=== PATIENT | female | born 1955 | race Caucasian/White ===

== ENCOUNTER → 2016-06-21 | Outpatient (CLI) | payer OTHER ==
[2016-06-21 18:34] LABS: BASO % 0.6 % (0.0-1.0); EOS # 0.3 K/mm3 (0.0-0.50); EOS % 3.8 % (0.0-3.0); LARGE UNSTAINED CELL # 0.1 K/mm3 (0.0-0.4); LARGE UNSTAINED CELL % 1.8 % (0.0-4.0); LYMPH # 2.4 K/mm3 (1.5-4.5); LYMPH % 31.3 % (24.0-44.0); MEAN CORPUSCULAR HEMOGLOBIN 31.6 pg (27.0-33.0); MEAN CORPUSCULAR HGB CONC 33.2 g/dl (32.0-36.5); MEAN CORPUSCULAR VOLUME 95.1 fl (80.0-96.0); MONO # 0.4 K/mm3 (0.0-0.8); MONO % 4.9 % (0.0-5.0); NEUTROPHILS # 4.1 K/mm3 (1.8-7.7); NEUTROPHILS % 57.6 % (36.0-66.0); PLATELET COUNT, AUTOMATED 223 k/mm3 (150-450); RED CELL DISTRIBUTION WIDTH 11.7 % (11.5-14.5); WHITE BLOOD COUNT 7.1 K/mm3 (4.0-10.0)
[2016-06-21 18:46] LABS: ALBUMIN 4.1 GM/DL (3.2-5.2); ALBUMIN/GLOBULIN RATIO 1.14 (1.00-1.93); ALKALINE PHOSPHATASE 77 U/L (45-117); ALT/SGPT 35 U/L (12-78); ANION GAP 8 MEQ/L (8-16); AST/SGOT 24 U/L (15-37); BILIRUBIN,TOTAL 0.5 MG/DL (0.2-1.0); BLOOD UREA NITROGEN 15 MG/DL (7-18); CALCIUM LEVEL 9.5 MG/DL (8.8-10.2); CARBON DIOXIDE LEVEL 29 MEQ/L (21-32); CHLORIDE LEVEL 108 MEQ/L (98-107); CHOLESTEROL LEVEL 217 MG/DL (<200); CREATININE FOR GFR 0.96 MG/DL (0.55-1.02); FREE T4 1.11 NG/DL (0.76-1.46); GLOMERULAR FILTRATION RATE > 60.0 (>45); GLUCOSE, FASTING 77 MG/DL (80-110); MAGNESIUM LEVEL 2.1 MG/DL (1.8-2.4); PERCENT SATURATION 34.6 % (13.2-37.4); POTASSIUM SERUM 4.5 MEQ/L (3.5-5.1); SODIUM LEVEL 145 MEQ/L (136-145); TOTAL IRON BINDING CAPACITY 361 UG/DL (250-450); TOTAL PROTEIN 7.7 GM/DL (6.4-8.2); TRIGLYCERIDES LEVEL 132 MG/DL (<150)
[2016-06-21 20:03] LABS: ERYTHROCYTE SEDIMENTATION RATE 34 mm/hr (0-30)
[2016-06-23 10:23] LABS: VITAMIN B12 LEVEL 1050 PG/ML
[2016-06-23 10:24] LABS: FOLATE > 24.0 NG/ML
== END ==
LOC: M WUC 10:31
PROVIDERS: ATTEND Nurse Practitioner Family
DX: E55.9 Vitamin D deficiency, unspecified (principal); R53.83 Other fatigue

== ENCOUNTER → 2016-06-24 | Outpatient (CLI) | payer OTHER ==
[2016-06-24 18:12] LABS: MEAN CORPUSCULAR HGB CONC 32.7 g/dl (32.0-36.5); MEAN CORPUSCULAR VOLUME 94.7 fl (80.0-96.0); WHITE BLOOD COUNT 13.6 K/mm3 (4.0-10.0)
[2016-06-24 18:13] LABS: RED CELL DISTRIBUTION WIDTH 11.8 % (11.5-14.5)
[2016-06-24 18:29] LABS: BANDS 1 % (< 11)
[2016-06-24 18:44] LABS: ERYTHROCYTE SEDIMENTATION RATE 30 mm/hr (0-30)
== END ==
LOC: M WUC 13:23
PROVIDERS: ATTEND Physician Assistant
DX: J02.9 Acute pharyngitis, unspecified (principal)

== ENCOUNTER → 2016-06-26 | Outpatient (CLI) | payer BC, OTHER ==
--- NOTE | 2016-06-26 17:18 | REP ---
CT NECK WITHOUT CONTRAST: HISTORY: Acute lymphadenitis. Increased soft tissue density present in the left carotid space and left prevertebral soft tissue. This represents a combination of lymphadenopathy and/or phlegmon. There is enlargement of the left sternocleidomastoid and platysma muscles. Stranding is present in the surrounding subcutaneous tissues from the level of the nasopharynx inferior to the level of the larynx. Increased density is present in the retropharyngeal space and left parapharyngeal spaces. These findings represent edema. There is minimal thickening of the left lateral wall of the truong- and hypopharynx. There is minimal mass effect on the truong- and hypopharynx. The nasopharynx, larynx and subglottic trachea are normal in appearance. The salivary and thyroid glands are normal. Small lymph nodes less than 1 cm in size are present in the internal jugular chains, posterior triangles, submandibular and submental areas. Atherosclerotic calcification is present at the carotid bifurcations. Degenerative change is present in the cervical spine. The lung apices are clear. The visualized sinuses are clear. IMPRESSION: The above findings are consistent with a phlegmon with associated surrounding edema in the left carotid , prevertebral spaces and left posterior triangle. Signed by Stefan Rizvi MD 06/27/2016 08:28 A
== END ==
LOC: M RAD 15:58
PROVIDERS: ATTEND Nurse Practitioner Family
DX: L04.0 Acute lymphadenitis of face, head and neck (principal)

== ENCOUNTER 2016-07-01 08:58 | Emergency (ER) | payer BC, OTHER ==
[2016-07-01] MEDS ORDERED: KETOROLAC 30 MG/ML VIAL (J1885) As Ordered ONE (09:35)
[2016-07-01 10:17] LABS: ANION GAP 7 MEQ/L (8-16); BLOOD UREA NITROGEN 19 MG/DL (7-18); CALCIUM LEVEL 9.8 MG/DL (8.8-10.2); CARBON DIOXIDE LEVEL 30 MEQ/L (21-32); CHLORIDE LEVEL 103 MEQ/L (98-107); CREATININE FOR GFR 0.84 MG/DL (0.55-1.02); GLOMERULAR FILTRATION RATE > 60.0 (>45); GLUCOSE, FASTING 81 MG/DL (80-110); POTASSIUM SERUM 4.4 MEQ/L (3.5-5.1); SODIUM LEVEL 140 MEQ/L (136-145)
[2016-07-01 10:21] LABS: BASO % 0.4 % (0.0-1.0); MEAN CORPUSCULAR HEMOGLOBIN 31.2 pg (27.0-33.0); MEAN CORPUSCULAR HGB CONC 33.8 g/dl (32.0-36.5); MEAN CORPUSCULAR VOLUME 92.2 fl (80.0-96.0); MONO % 5.1 % (0.0-5.0); NEUTROPHILS % 60.1 % (36.0-66.0); PLATELET COUNT, AUTOMATED 330 k/mm3 (150-450); RED CELL DISTRIBUTION WIDTH 11.3 % (11.5-14.5); WHITE BLOOD COUNT 7.2 K/mm3 (4.0-10.0)
[2016-07-01 10:22] LABS: DIFF SLIDE NUMBER 159; EOS # 0.2 K/mm3 (0.0-0.50); LARGE UNSTAINED CELL # 0.2 K/mm3 (0.0-0.4); LARGE UNSTAINED CELL % 2.4 % (0.0-4.0); LYMPH # 2.1 K/mm3 (1.5-4.5); MONO # 0.4 K/mm3 (0.0-0.8); NEUTROPHILS # 4.3 K/mm3 (1.8-7.7)
[2016-07-01] MEDS ORDERED: ISOVUE-370 76% 100ML VIAL (Q9967) As Ordered ONE (10:29)
[2016-07-01 10:41] LABS: ERYTHROCYTE SEDIMENTATION RATE 86 mm/hr (0-30)
--- NOTE | 2016-07-01 11:12 | REP ---
CT NECK WITH CONTRAST: HISTORY: Abscess. CONTRAST: Isovue 370, 75 mL. COMPARISON: 06/26/2016. The naso-, truong-, and hypopharynx, larynx and subglottic trachea are normal in appearance. The salivary and thyroid glands are normal. A 1.7 cm abscess is present in the left posterior triangle at the level of the oropharynx. There is enlargement of the left sternocleidomastoid, left platysma and left posterior paraspinal musculature. Stranding is present in the surrounding subcutaneous tissue. This is consistent with edema. Small lymph nodes less than 1 cm in size are present in the internal jugular chains, posterior triangles, submandibular, submental and supraclavicular areas. Atherosclerotic calcification is present at the right carotid bifurcation. Degenerative change is present in the cervical spine. The lung apices are clear. The visualized sinuses are clear. IMPRESSION: There is a 1.7 cm abscess in the left posterior triangle at the level of the oropharynx. There is edema in the adjacent musculature and overlying subcutaneous tissue. There is no mass effect on the oropharynx. Signed by Stefan Rizvi MD 07/01/2016 11:14 A
--- NOTE | 2016-07-01 11:35 | EDDOCDS ---
Physician Documentation [facility] Name: Trice Jones Age: 60 yrs Sex: Female : 1955 Arrival Date: 07/01/2016 Time: 08:58 Bed I5 / M5 Private MD: Disposition: 07/01/16 11:24 Discharged to Home/Self Care. Impression: Cutaneous abscess of neck - 1.7CM ABSCESS LEFT POSTERIOR TRIANGLE OF NECK. - Condition is Stable. - Discharge Instructions: Abscess. - Prescriptions for Prednisone 20 mg Oral Tablet - take 2 tablets by ORAL route once daily for 4 days TAKE WITH FOOD, EARLIER IN THE DAY; 8 tablet. - Medication Reconciliation, Local Pharmacy Hours form. - Follow up: Emergency Department; When: As needed; Reason: Worsening of conditions. Follow up: Dionte Cameron; When: Call to arrange an appointment; Reason: Wound/Symptom Recheck, Recheck today's complaints, Continuance of care, To establish care. Follow up: Jose Dailey MD; When: Call to arrange an appointment; Reason: Wound/Symptom Recheck, Recheck today's complaints, Continuance of care, To establish care. - Problem is new. - Symptoms are unchanged. - Notes: CONTINUE TAKING THE ANTIBIOTIC YOU ARE ON NOW, TAKE DIRECTED UNTIL IT IS GONE. TAKE THE PREDNISONE PRESCRIBED UNTIL IT IS GONE WELL. FOLLOW UP ON THURSDAY WITH YOUR PROVIDER. RETURN TO THE ER WITH ANY WORSENING SYMPTOMS. Historical: - Allergies: No known drug Allergies; - Home Meds: 1. Zyrtec 10 mg Oral tab 1 tab once daily 2. multivitamin Oral cap 1 tablet daily 3. CoQ-10 oral oral daily 4. krill oil oral oral daily 5. vitamin D3 5000 units daily 6. calcium 600 mg daily 7. Cleocin 300 mg Oral cap 1 cap every 6 hours - PMHx: Seasonal Allergies; - PSHx: Tonsillectomy; Hysterectomy; - Social history: Smoking status: Patient states former smoker of tobacco. No barriers to communication noted, The patient speaks fluent Turkmen. - Family history: Not pertinent. - : The pt / caregiver states he / she is not on anticoagulants. Home medication list is obtained from the patient. - Exposure Risk Screening:: None identified. Vital Signs: 07/01 09:00 BP 114 / 84; Pulse 83; Resp 16; Temp 97.4(O); Pulse Ox 100% on R/A; Weight 58.06 kg / lr2 128 lbs (R); Height 5 ft. 4 in. (162.56 cm) (R); Pain 5/10; 11:33 BP 115 / 68; Pulse 88; Resp 18; Temp 97.8; Pulse Ox 95% ; Pain 5/10; hs1 09:00 Body Mass Index 21.97 (58.06 kg, 162.56 cm) lr2 MDM: 09:27 IV Saline Lock ordered. dt4 09:27 ketorolac 30 mg IVP once ordered. dt4 09:28 CBC with Diff Ordered. EDMS 09:28 Basic Metabolic Profile Ordered. EDMS 09:28 Sed Rate Ordered. EDMS 09:28 CRP Ordered. EDMS 09:28 CT Neck With Contrast Ordered. EDMS 09:29 ED course: PT STATES SEEN INITIALLY AT URGENT CARE FOR LEFT-SIDED NECK SWELLING/PAIN dt4 LAST WEEK. HAD CT SCAN PERFORMED AND DX'D WITH ABSCESS AND PLACED ON AUGMENTIN. PT STATES AREA WAS WORSENING, RETURNED TO THE URGENT CARE AND HAD AUGMENTIN CHANGED TO CLEOCIN. STATES HAD FOLLOW UP APPOINTMENT TODAY AT URGENT CARE AND WAS ADVISED TO COME TO THE ER TO HAVE THIS AREA DRAINED BY A SURGEON. STATES THE PROVIDER AT URGENT CARE ATTEMPTED TO CONTACT A SURGICAL SERVICE AND WAS UNABLE TO SPEAK WITH SOMEONE. PT STATES SHE HAS MORE ROM IN HER NECK TODAY THAT SHE HAS SINCE THIS BEGAN, BELIEVES THE SWELLING HAS IMPROVED SOME SINCE STARTING THE CLEOCIN. . 10:00 [facility] Payment Agreement was scanned into [email or web address] and attached to record. jp5 10:00 Financial registration complete. jp5 Administered Medications: 09:47 Drug: ketorolac 30 mg [ketorolac 30 mg/mL (1 mL) injection solution (1 mL)] Route: IVP; hs1 Site: right antecubital; Signatures: Dispatcher [employer] Cheyenne Delcid RN RN kcs Sherrill, Hannah, RN RN hs1 Molly Alan PA-C PAKati dt4 Tavon Jade jp5 The chart was reviewed and I authenticate all verbal orders and agree with the evaluation and treatment provided.Attachments: 10:00 [facility] Payment Agreement jp5 MTDD
--- NOTE | 2016-07-01 11:35 | EDDOCDS ---
Nurse's Notes [facility] Name: Trice Jones Age: 60 yrs Sex: Female : 1955 Arrival Date: 07/01/2016 Time: 08:58 Bed I5 / M5 Private MD: Diagnosis: Cutaneous abscess of neck-1.7CM ABSCESS LEFT POSTERIOR TRIANGLE OF NECK Presentation: 07/01 09:03 Presenting complaint: Patient states: she was at Urgent Care and sent here to have an kcs abscess drained on the left side of her neck - calls were out for surgeons but they did not call back so she was sent here. Adult Sepsis Screening: The patient does not have new or worsening altered mentation. Patient's respiratory rate is less than 22. Systolic blood pressure is greater than 100. Patient has a qSOFA score of 0- Negative Sepsis Screen. Suicide/Homicide risk assessment- the patient denies having any suicidal and/or homicidal ideations and does not present with any other emotional, behavioral or mental health complaints. Status: Patient is not a financial services associate or dependent. Transition of care: Patient was received from [facility]. 09:03 Acuity: ANNA Level 4 kcs 09:03 Method Of Arrival: Walkin/Carried/Asstd kcs Triage Assessment: 09:08 General: Appears comfortable, well developed, well nourished, well groomed, Behavior is kcs cooperative, pleasant. Pain: Location: left side of neck Pain currently is 5 out of 10 on a pain scale. Pt Declines HIV testing. Neurological: Level of Consciousness is awake, alert. Respiratory: Airway is patent Respiratory effort is even, unlabored, Respiratory pattern is regular, symmetrical. Derm: Skin is intact, is healthy with good turgor, Skin is dry, Skin is normal. Historical: - Allergies: No known drug Allergies; - Home Meds: 1. Zyrtec 10 mg Oral tab 1 tab once daily 2. multivitamin Oral cap 1 tablet daily 3. CoQ-10 oral oral daily 4. krill oil oral oral daily 5. vitamin D3 5000 units daily 6. calcium 600 mg daily 7. Cleocin 300 mg Oral cap 1 cap every 6 hours - PMHx: Seasonal Allergies; - PSHx: Tonsillectomy; Hysterectomy; - Social history: Smoking status: Patient states former smoker of tobacco. No barriers to communication noted, The patient speaks fluent French. - Family history: Not pertinent. - : The pt / caregiver states he / she is not on anticoagulants. Home medication list is obtained from the patient. - Exposure Risk Screening:: None identified. Screenin:47 Screening information is obtained from the patient. Fall risk: No risks identified. hs1 Assistance ADL's: requires no assistance with activities of daily living. Abuse/DV Screen: The patient / caregiver reports he/she is: not in a situation that causes fear, pain or injury. Nutritional screening: No deficits noted. Advance Directives: There is no active DNR order. home support is adequate. Assessment: 09:48 Pain: Location: neck Quality of pain is described as aching. Neurological: Level of hs1 Consciousness is awake, alert, obeys commands. Respiratory: Airway is patent Respiratory effort is even, unlabored, Respiratory pattern is regular, symmetrical. Derm: Swollen area noted on left sternocleidomastoid. 10:57 General: Appears in no apparent distress, comfortable, Behavior is appropriate for age, hs1 cooperative, Returned from CT scan with no issues. Patient tolerated scan well. . 11:32 Reassessment: Patient appears in no apparent distress at this time. Patient states hs1 feeling better. Patient states symptoms have improved. Vital Signs: 09:00 BP 114 / 84; Pulse 83; Resp 16; Temp 97.4(O); Pulse Ox 100% on R/A; Weight 58.06 kg lr2 (R); Height 5 ft. 4 in. (162.56 cm) (R); Pain 5/10; 11:33 BP 115 / 68; Pulse 88; Resp 18; Temp 97.8; Pulse Ox 95% ; Pain 5/10; hs1 09:00 Body Mass Index 21.97 (58.06 kg, 162.56 cm) lr2 Vitals: 09:00 Log In Time: July 01, 2016 at 08:58. lr2 ED Course: 08:59 Patient visited by Shara Gan. lr2 08:59 Patient moved to Waiting lr2 09:03 Patient moved to Pre RCE kcs 09:05 Triage Initiated kcs 09:10 Patient moved to Triage 1 kcs 09:12 Molly Alan PA-C is PHCP. dt4 09:12 Analy Ricks MD is Attending Physician. dt4 09:12 Patient visited by Molly Alan PA-C. dt4 09:35 Yuki Gregg, ELIU is Primary Nurse. hs1 09:35 Patient moved to I5 / hs1 09:46 CRP Sent. hs1 09:46 Sed Rate Sent. hs1 09:46 Basic Metabolic Profile Sent. hs1 09:46 CBC with Diff Sent. hs1 09:47 The patient / caregiver is instructed regarding the plan of care and ED course. hs1 09:47 Inserted saline lock: 20 gauge in right antecubital area and blood collected. The hs1 patient tolerated the procedure well. 09:48 Patient visited by Susan Prieto, ELIU. mk4 10:00 [facility] Payment Agreement was scanned into [employer] and attached to record. jp5 10:30 Patient visited by Vipul Bautista. jml1 11:00 Patient visited by Susan Prieto RN. mk4 11:23 Dionte Cameron is Referral Physician. dt4 11:23 Jose Dailey MD is Referral Physician. dt4 11:33 Discontinued IV lock intact, bleeding controlled, pressure dressing applied, No hs1 redness/swelling at site. No procedures done that require assistance. Administered Medications: 09:47 Drug: ketorolac 30 mg [ketorolac 30 mg/mL (1 mL) injection solution (1 mL)] Route: IVP; hs1 Site: right antecubital; Order Results: Lab Order: CBC with Diff; SPEC'M 07/01/16 09:45 Test: WHITE BLOOD COUNT; Value: 7.2; Range: 4.0-10.0; Units: K/mm3; Status: F Test: RED BLOOD COUNT; Value: 4.41; Range: 4.00-5.40; Units: M/mm3; Status: F Test: HEMOGLOBIN; Value: 13.7; Range: 12.0-16.0; Units: g/dl; Status: F Test: HEMATOCRIT; Value: 40.6; Range: 36.0-47.0; Units: %; Status: F Test: MEAN CORPUSCULAR VOLUME; Value: 92.2; Range: 80.0-96.0; Units: fl; Status: F Test: MEAN CORPUSCULAR HEMOGLOBIN; Value: 31.2; Range: 27.0-33.0; Units: pg; Status: F Test: MEAN CORPUSCULAR HGB CONC; Value: 33.8; Range: 32.0-36.5; Units: g/dl; Status: F Test: RED CELL DISTRIBUTION WIDTH; Value: 11.3; Range: 11.5-14.5; Abnormal: Below low normal; Units: %; Status: F Test: PLATELET COUNT, AUTOMATED; Value: 330; Range: 150-450; Units: k/mm3; Status: F Test: NEUTROPHILS %; Value: 60.1; Range: 36.0-66.0; Units: %; Status: F Test: LYMPH %; Value: 29.0; Range: 24.0-44.0; Units: %; Status: F Test: MONO %; Value: 5.1; Range: 0.0-5.0; Abnormal: Above high normal; Units: %; Status: F Test: EOS %; Value: 3.0; Range: 0.0-3.0; Units: %; Status: F Test: BASO %; Value: 0.4; Range: 0.0-1.0; Units: %; Status: F Test: LARGE UNSTAINED CELL %; Value: 2.4; Range: 0.0-4.0; Units: %; Status: F Test: NEUTROPHILS #; Value: 4.3; Range: 1.8-7.7; Units: K/mm3; Status: F Test: LYMPH #; Value: 2.1; Range: 1.5-4.5; Units: K/mm3; Status: F Test: MONO #; Value: 0.4; Range: 0.0-0.8; Units: K/mm3; Status: F Test: EOS #; Value: 0.2; Range: 0.0-0.50; Units: K/mm3; Status: F Test: BASO #; Value: 0.0; Range: 0.0-0.2; Units: K/mm3; Status: F Test: LARGE UNSTAINED CELL #; Value: 0.2; Range: 0.0-0.4; Units: K/mm3; Status: F Lab Order: Basic Metabolic Profile; [facility]' 07/01/16 09:45 Test: GLUCOSE, FASTING; Value: 81; Range: 80-110; Units: MG/DL; Status: F Test: BLOOD UREA NITROGEN; Value: 19; Range: 7-18; Abnormal: Above high normal; Units: MG/DL; Status: F Test: CREATININE FOR GFR; Value: 0.84; Range: 0.55-1.02; Units: MG/DL; Status: F Test: GLOMERULAR FILTRATION RATE; Value: > 60.0; Range: >45; Status: F Test: SODIUM LEVEL; Value: 140; Range: 136-145; Units: MEQ/L; Status: F Test: POTASSIUM SERUM; Value: 4.4; Range: 3.5-5.1; Units: MEQ/L; Status: F Test: CHLORIDE LEVEL; Value: 103; Range: 98-107; Units: MEQ/L; Status: F Test: CARBON DIOXIDE LEVEL; Value: 30; Range: 21-32; Units: MEQ/L; Status: F Test: ANION GAP; Value: 7; Range: 8-16; Abnormal: Below low normal; Units: MEQ/L; Status: F Test: CALCIUM LEVEL; Value: 9.8; Range: 8.8-10.2; Units: MG/DL; Status: F Test Note: ; Units are mL/min/1.73 m2 Chronic Kidney Disease Staging per NKF: Stage I & II GFR >=60 Normal to Mildly Decreased Stage III GFR 30-59 Moderately Decreased Stage IV GFR 15-29 Severely Decreased Stage V GFR <15 Very Little GFR Left ESRD GFR <15 on JAVA LE[employer]CHITECT Lab Order: Sed Rate; SPEC'M 07/01/16 09:45 Test: ERYTHROCYTE SEDIMENTATION RATE; Value: 86; Range: 0-30; Abnormal: Above high normal; Units: mm/hr; Status: F Lab Order: CRP; SPEC'M 07/01/16 09:45 Test: C REACTIVE PROTEIN QUANTITATIV; Value: 6.13; Range: 0.00-0.30; Abnormal: Above high normal; Units: MG/DL; Status: F Outcome: 11:24 Discharge ordered by Provider. dt4 11:33 Discharge Assessment: Patient awake, alert and oriented x 3. No cognitive and/or hs1 functional deficits noted. Patient verbalized understanding of disposition instructions. patient administered narcotics - no. The following High Risk Discharge criteria are identified: None. Discharged to home ambulatory, with family. Condition: stable. Discharge instructions given to patient, family, Instructed on discharge instructions, follow up and referral plans. medication usage, Demonstrated understanding of instructions, medications, Pt was receptive of discharge instructions/ teaching. Prescriptions given X 1. CT Study completed. Property sent home with patient. 11:34 Patient left the ED. hs1 Signatures: Cheyenne Koo, RN RN kcs Yuki Gregg RN RN hs1 Vipul Bautista jml1 Susan Prieto RN RN mk4 Molly Alan, PA-C PA-C dt4 Tavon Jade jp5 Shara Gan lr2 Corrections: (The following items were deleted from the chart) 09:48 09:47 Inserted saline lock: 20 gauge in left antecubital area hs1 hs1 MTDD
--- NOTE | 2016-07-03 12:35 | EDDOCDS ---
Physician Documentation [facility] Name: Trice Jones Age: 60 yrs Sex: Female : 1955 Arrival Date: 07/01/2016 Time: 08:58 Bed I5 / M5 Private MD: Disposition: 07/01/16 11:24 Discharged to Home/Self Care. Impression: Cutaneous abscess of neck - 1.7CM ABSCESS LEFT POSTERIOR TRIANGLE OF NECK. - Condition is Stable. - Discharge Instructions: Abscess. - Prescriptions for Prednisone 20 mg Oral Tablet - take 2 tablets by ORAL route once daily for 4 days TAKE WITH FOOD, EARLIER IN THE DAY; 8 tablet. - Medication Reconciliation, Local Pharmacy Hours form. - Follow up: Emergency Department; When: As needed; Reason: Worsening of conditions. Follow up: Dionte Cameron; When: Call to arrange an appointment; Reason: Wound/Symptom Recheck, Recheck today's complaints, Continuance of care, To establish care. Follow up: Jose Dailey MD; When: Call to arrange an appointment; Reason: Wound/Symptom Recheck, Recheck today's complaints, Continuance of care, To establish care. - Problem is new. - Symptoms are unchanged. - Notes: CONTINUE TAKING THE ANTIBIOTIC YOU ARE ON NOW, TAKE DIRECTED UNTIL IT IS GONE. TAKE THE PREDNISONE PRESCRIBED UNTIL IT IS GONE WELL. FOLLOW UP ON THURSDAY WITH YOUR PROVIDER. RETURN TO THE ER WITH ANY WORSENING SYMPTOMS. Historical: - Allergies: No known drug Allergies; - Home Meds: 1. Zyrtec 10 mg Oral tab 1 tab once daily 2. multivitamin Oral cap 1 tablet daily 3. CoQ-10 oral oral daily 4. krill oil oral oral daily 5. vitamin D3 5000 units daily 6. calcium 600 mg daily 7. Cleocin 300 mg Oral cap 1 cap every 6 hours - PMHx: Seasonal Allergies; - PSHx: Tonsillectomy; Hysterectomy; - Social history: Smoking status: Patient states former smoker of tobacco. No barriers to communication noted, The patient speaks fluent Yoruba. - Family history: Not pertinent. - : The pt / caregiver states he / she is not on anticoagulants. Home medication list is obtained from the patient. - Exposure Risk Screening:: None identified. Vital Signs: 07/01 09:00 BP 114 / 84; Pulse 83; Resp 16; Temp 97.4(O); Pulse Ox 100% on R/A; Weight 58.06 kg / lr2 128 lbs (R); Height 5 ft. 4 in. (162.56 cm) (R); Pain 5/10; 11:33 BP 115 / 68; Pulse 88; Resp 18; Temp 97.8; Pulse Ox 95% ; Pain 5/10; hs1 09:00 Body Mass Index 21.97 (58.06 kg, 162.56 cm) lr2 MDM: 09:27 IV Saline Lock ordered. dt4 09:27 ketorolac 30 mg IVP once ordered. dt4 09:28 CBC with Diff Ordered. EDMS 09:28 Basic Metabolic Profile Ordered. EDMS 09:28 Sed Rate Ordered. EDMS 09:28 CRP Ordered. EDMS 09:28 CT Neck With Contrast Ordered. EDMS 09:29 ED course: PT STATES SEEN INITIALLY AT URGENT CARE FOR LEFT-SIDED NECK SWELLING/PAIN dt4 LAST WEEK. HAD CT SCAN PERFORMED AND DX'D WITH ABSCESS AND PLACED ON AUGMENTIN. PT STATES AREA WAS WORSENING, RETURNED TO THE URGENT CARE AND HAD AUGMENTIN CHANGED TO CLEOCIN. STATES HAD FOLLOW UP APPOINTMENT TODAY AT URGENT CARE AND WAS ADVISED TO COME TO THE ER TO HAVE THIS AREA DRAINED BY A SURGEON. STATES THE PROVIDER AT URGENT CARE ATTEMPTED TO CONTACT A SURGICAL SERVICE AND WAS UNABLE TO SPEAK WITH SOMEONE. PT STATES SHE HAS MORE ROM IN HER NECK TODAY THAT SHE HAS SINCE THIS BEGAN, BELIEVES THE SWELLING HAS IMPROVED SOME SINCE STARTING THE CLEOCIN. . 10:00 [facility] Payment Agreement was scanned into [employer] and attached to record. 5 10:00 Financial registration complete. 5 13:36 T-Sheet-- Draft Copy was scanned into [employer] and attached to record. gb 13:36 Radiology Report was scanned into [employer] and attached to record. gb Administered Medications: 09:47 Drug: ketorolac 30 mg [ketorolac 30 mg/mL (1 mL) injection solution (1 mL)] Route: IVP; hs1 Site: right antecubital; Signatures: Dispatcher [employer] EDCheyenne Torre RN RN Monika Day, Reg Reg gb Yuki Gregg RN RN hs1 Molly Alan PA-C PA-C dt4 Tavon Jade jp5 The chart was reviewed and I authenticate all verbal orders and agree with the evaluation and treatment provided.Attachments: 10:00 [facility] Payment Agreement jp5 13:36 T-Sheet-- Draft Copy gb Chart Complete MTDD
--- NOTE | 2016-07-03 12:35 | EDDOCDS ---
Physician Documentation [facility] Name: Trice Jones Age: 60 yrs Sex: Female : 1955 Arrival Date: 07/01/2016 Time: 08:58 Bed I5 / M5 Private MD: Disposition: 07/01/16 11:24 Discharged to Home/Self Care. Impression: Cutaneous abscess of neck - 1.7CM ABSCESS LEFT POSTERIOR TRIANGLE OF NECK. - Condition is Stable. - Discharge Instructions: Abscess. - Prescriptions for Prednisone 20 mg Oral Tablet - take 2 tablets by ORAL route once daily for 4 days TAKE WITH FOOD, EARLIER IN THE DAY; 8 tablet. - Medication Reconciliation, Local Pharmacy Hours form. - Follow up: Emergency Department; When: As needed; Reason: Worsening of conditions. Follow up: Dionte Cameron; When: Call to arrange an appointment; Reason: Wound/Symptom Recheck, Recheck today's complaints, Continuance of care, To establish care. Follow up: Jose Dailey MD; When: Call to arrange an appointment; Reason: Wound/Symptom Recheck, Recheck today's complaints, Continuance of care, To establish care. - Problem is new. - Symptoms are unchanged. - Notes: CONTINUE TAKING THE ANTIBIOTIC YOU ARE ON NOW, TAKE DIRECTED UNTIL IT IS GONE. TAKE THE PREDNISONE PRESCRIBED UNTIL IT IS GONE WELL. FOLLOW UP ON THURSDAY WITH YOUR PROVIDER. RETURN TO THE ER WITH ANY WORSENING SYMPTOMS. Historical: - Allergies: No known drug Allergies; - Home Meds: 1. Zyrtec 10 mg Oral tab 1 tab once daily 2. multivitamin Oral cap 1 tablet daily 3. CoQ-10 oral oral daily 4. krill oil oral oral daily 5. vitamin D3 5000 units daily 6. calcium 600 mg daily 7. Cleocin 300 mg Oral cap 1 cap every 6 hours - PMHx: Seasonal Allergies; - PSHx: Tonsillectomy; Hysterectomy; - Social history: Smoking status: Patient states former smoker of tobacco. No barriers to communication noted, The patient speaks fluent Slovenian. - Family history: Not pertinent. - : The pt / caregiver states he / she is not on anticoagulants. Home medication list is obtained from the patient. - Exposure Risk Screening:: None identified. Vital Signs: 07/01 09:00 BP 114 / 84; Pulse 83; Resp 16; Temp 97.4(O); Pulse Ox 100% on R/A; Weight 58.06 kg / lr2 128 lbs (R); Height 5 ft. 4 in. (162.56 cm) (R); Pain 5/10; 11:33 BP 115 / 68; Pulse 88; Resp 18; Temp 97.8; Pulse Ox 95% ; Pain 5/10; hs1 09:00 Body Mass Index 21.97 (58.06 kg, 162.56 cm) lr2 MDM: 09:27 IV Saline Lock ordered. dt4 09:27 ketorolac 30 mg IVP once ordered. dt4 09:28 CBC with Diff Ordered. EDMS 09:28 Basic Metabolic Profile Ordered. EDMS 09:28 Sed Rate Ordered. EDMS 09:28 CRP Ordered. EDMS 09:28 CT Neck With Contrast Ordered. EDMS 09:29 ED course: PT STATES SEEN INITIALLY AT URGENT CARE FOR LEFT-SIDED NECK SWELLING/PAIN dt4 LAST WEEK. HAD CT SCAN PERFORMED AND DX'D WITH ABSCESS AND PLACED ON AUGMENTIN. PT STATES AREA WAS WORSENING, RETURNED TO THE URGENT CARE AND HAD AUGMENTIN CHANGED TO CLEOCIN. STATES HAD FOLLOW UP APPOINTMENT TODAY AT URGENT CARE AND WAS ADVISED TO COME TO THE ER TO HAVE THIS AREA DRAINED BY A SURGEON. STATES THE PROVIDER AT URGENT CARE ATTEMPTED TO CONTACT A SURGICAL SERVICE AND WAS UNABLE TO SPEAK WITH SOMEONE. PT STATES SHE HAS MORE ROM IN HER NECK TODAY THAT SHE HAS SINCE THIS BEGAN, BELIEVES THE SWELLING HAS IMPROVED SOME SINCE STARTING THE CLEOCIN. . 10:00 [facility] Payment Agreement was scanned into [employer] and attached to record. 5 10:00 Financial registration complete. 5 13:36 T-Sheet-- Draft Copy was scanned into [employer]see and attached to record. gb 13:36 Radiology Report was scanned into [employer] and attached to record. gb Administered Medications: 09:47 Drug: ketorolac 30 mg [ketorolac 30 mg/mL (1 mL) injection solution (1 mL)] Route: IVP; hs1 Site: right antecubital; Signatures: Dispatcher [employer] EDCheyenne Torre RN RN Monika Day, Reg Reg gb Yuki Gregg RN RN hs1 Molly Alan PA-C PA-C dt4 Tavon Jade jp5 The chart was reviewed and I authenticate all verbal orders and agree with the evaluation and treatment provided.Attachments: 10:00 [facility] Payment Agreement jp5 13:36 T-Sheet-- Draft Copy gb Chart Complete MTDD
--- NOTE | 2016-07-03 12:35 | EDDOCDS ---
Nurse's Notes [facility] Name: Trice Jones Age: 60 yrs Sex: Female : 1955 Arrival Date: 07/01/2016 Time: 08:58 Bed I5 / M5 Private MD: Diagnosis: Cutaneous abscess of neck-1.7CM ABSCESS LEFT POSTERIOR TRIANGLE OF NECK Presentation: 07/01 09:03 Presenting complaint: Patient states: she was at Urgent Care and sent here to have an kcs abscess drained on the left side of her neck - calls were out for surgeons but they did not call back so she was sent here. Adult Sepsis Screening: The patient does not have new or worsening altered mentation. Patient's respiratory rate is less than 22. Systolic blood pressure is greater than 100. Patient has a qSOFA score of 0- Negative Sepsis Screen. Suicide/Homicide risk assessment- the patient denies having any suicidal and/or homicidal ideations and does not present with any other emotional, behavioral or mental health complaints. Status: Patient is not a housetrailer servicer or dependent. Transition of care: Patient was received from [facility]. 09:03 Acuity: ANNA Level 4 kcs 09:03 Method Of Arrival: Walkin/Carried/Asstd kcs Triage Assessment: 09:08 General: Appears comfortable, well developed, well nourished, well groomed, Behavior is kcs cooperative, pleasant. Pain: Location: left side of neck Pain currently is 5 out of 10 on a pain scale. Pt Declines HIV testing. Neurological: Level of Consciousness is awake, alert. Respiratory: Airway is patent Respiratory effort is even, unlabored, Respiratory pattern is regular, symmetrical. Derm: Skin is intact, is healthy with good turgor, Skin is dry, Skin is normal. Historical: - Allergies: No known drug Allergies; - Home Meds: 1. Zyrtec 10 mg Oral tab 1 tab once daily 2. multivitamin Oral cap 1 tablet daily 3. CoQ-10 oral oral daily 4. krill oil oral oral daily 5. vitamin D3 5000 units daily 6. calcium 600 mg daily 7. Cleocin 300 mg Oral cap 1 cap every 6 hours - PMHx: Seasonal Allergies; - PSHx: Tonsillectomy; Hysterectomy; - Social history: Smoking status: Patient states former smoker of tobacco. No barriers to communication noted, The patient speaks fluent Icelandic. - Family history: Not pertinent. - : The pt / caregiver states he / she is not on anticoagulants. Home medication list is obtained from the patient. - Exposure Risk Screening:: None identified. Screenin:47 Screening information is obtained from the patient. Fall risk: No risks identified. hs1 Assistance ADL's: requires no assistance with activities of daily living. Abuse/DV Screen: The patient / caregiver reports he/she is: not in a situation that causes fear, pain or injury. Nutritional screening: No deficits noted. Advance Directives: There is no active DNR order. home support is adequate. Assessment: 09:48 Pain: Location: neck Quality of pain is described as aching. Neurological: Level of hs1 Consciousness is awake, alert, obeys commands. Respiratory: Airway is patent Respiratory effort is even, unlabored, Respiratory pattern is regular, symmetrical. Derm: Swollen area noted on left sternocleidomastoid. 10:57 General: Appears in no apparent distress, comfortable, Behavior is appropriate for age, hs1 cooperative, Returned from CT scan with no issues. Patient tolerated scan well. . 11:32 Reassessment: Patient appears in no apparent distress at this time. Patient states hs1 feeling better. Patient states symptoms have improved. Vital Signs: 09:00 BP 114 / 84; Pulse 83; Resp 16; Temp 97.4(O); Pulse Ox 100% on R/A; Weight 58.06 kg lr2 (R); Height 5 ft. 4 in. (162.56 cm) (R); Pain 5/10; 11:33 BP 115 / 68; Pulse 88; Resp 18; Temp 97.8; Pulse Ox 95% ; Pain 5/10; hs1 09:00 Body Mass Index 21.97 (58.06 kg, 162.56 cm) lr2 Vitals: 09:00 Log In Time: July 01, 2016 at 08:58. lr2 ED Course: 08:59 Patient visited by Shara Gan. lr2 08:59 Patient moved to Waiting lr2 09:03 Patient moved to Pre RCE kcs 09:05 Triage Initiated kcs 09:10 Patient moved to Triage 1 kcs 09:12 Molly Alan PA-C is PHCP. dt4 09:12 Analy Ricks MD is Attending Physician. dt4 09:12 Patient visited by Molly Alan PA-C. dt4 09:35 Yuki Gregg, ELIU is Primary Nurse. hs1 09:35 Patient moved to I5 / M5 hs1 09:46 CRP Sent. hs1 09:46 Sed Rate Sent. hs1 09:46 Basic Metabolic Profile Sent. hs1 09:46 CBC with Diff Sent. hs1 09:47 The patient / caregiver is instructed regarding the plan of care and ED course. hs1 09:47 Inserted saline lock: 20 gauge in right antecubital area and blood collected. The hs1 patient tolerated the procedure well. 09:48 Patient visited by Susan Prieto, ELIU. mk4 10:00 [facility] Payment Agreement was scanned into [employer] and attached to record. jp5 10:30 Patient visited by Vipul Bautista. jml1 11:00 Patient visited by Susan Prieto RN. mk4 11:23 Dionte Cameron is Referral Physician. dt4 11:23 Jose Dailey MD is Referral Physician. dt4 11:33 Discontinued IV lock intact, bleeding controlled, pressure dressing applied, No hs1 redness/swelling at site. No procedures done that require assistance. 11:39 CT Neck With Contrast Returned. EDMS 13:36 T-Sheet-- Draft Copy was scanned into [employer] and attached to record. gb 13:36 Radiology Report was scanned into [employer] and attached to record. gb Administered Medications: 09:47 Drug: ketorolac 30 mg [ketorolac 30 mg/mL (1 mL) injection solution (1 mL)] Route: IVP; hs1 Site: right antecubital; Order Results: Lab Order: CBC with Diff; SPEC'M 07/01/16 09:45 Test: WHITE BLOOD COUNT; Value: 7.2; Range: 4.0-10.0; Units: K/mm3; Status: F Test: RED BLOOD COUNT; Value: 4.41; Range: 4.00-5.40; Units: M/mm3; Status: F Test: HEMOGLOBIN; Value: 13.7; Range: 12.0-16.0; Units: g/dl; Status: F Test: HEMATOCRIT; Value: 40.6; Range: 36.0-47.0; Units: %; Status: F Test: MEAN CORPUSCULAR VOLUME; Value: 92.2; Range: 80.0-96.0; Units: fl; Status: F Test: MEAN CORPUSCULAR HEMOGLOBIN; Value: 31.2; Range: 27.0-33.0; Units: pg; Status: F Test: MEAN CORPUSCULAR HGB CONC; Value: 33.8; Range: 32.0-36.5; Units: g/dl; Status: F Test: RED CELL DISTRIBUTION WIDTH; Value: 11.3; Range: 11.5-14.5; Abnormal: Below low normal; Units: %; Status: F Test: PLATELET COUNT, AUTOMATED; Value: 330; Range: 150-450; Units: k/mm3; Status: F Test: NEUTROPHILS %; Value: 60.1; Range: 36.0-66.0; Units: %; Status: F Test: LYMPH %; Value: 29.0; Range: 24.0-44.0; Units: %; Status: F Test: MONO %; Value: 5.1; Range: 0.0-5.0; Abnormal: Above high normal; Units: %; Status: F Test: EOS %; Value: 3.0; Range: 0.0-3.0; Units: %; Status: F Test: BASO %; Value: 0.4; Range: 0.0-1.0; Units: %; Status: F Test: LARGE UNSTAINED CELL %; Value: 2.4; Range: 0.0-4.0; Units: %; Status: F Test: NEUTROPHILS #; Value: 4.3; Range: 1.8-7.7; Units: K/mm3; Status: F Test: LYMPH #; Value: 2.1; Range: 1.5-4.5; Units: K/mm3; Status: F Test: MONO #; Value: 0.4; Range: 0.0-0.8; Units: K/mm3; Status: F Test: EOS #; Value: 0.2; Range: 0.0-0.50; Units: K/mm3; Status: F Test: BASO #; Value: 0.0; Range: 0.0-0.2; Units: K/mm3; Status: F Test: LARGE UNSTAINED CELL #; Value: 0.2; Range: 0.0-0.4; Units: K/mm3; Status: F Lab Order: Basic Metabolic Profile; 07/01/16 09:45 Test: GLUCOSE, FASTING; Value: 81; Range: 80-110; Units: MG/DL; Status: F Test: BLOOD UREA NITROGEN; Value: 19; Range: 7-18; Abnormal: Above high normal; Units: MG/DL; Status: F Test: CREATININE FOR GFR; Value: 0.84; Range: 0.55-1.02; Units: MG/DL; Status: F Test: GLOMERULAR FILTRATION RATE; Value: > 60.0; Range: >45; Status: F Test: SODIUM LEVEL; Value: 140; Range: 136-145; Units: MEQ/L; Status: F Test: POTASSIUM SERUM; Value: 4.4; Range: 3.5-5.1; Units: MEQ/L; Status: F Test: CHLORIDE LEVEL; Value: 103; Range: 98-107; Units: MEQ/L; Status: F Test: CARBON DIOXIDE LEVEL; Value: 30; Range: 21-32; Units: MEQ/L; Status: F Test: ANION GAP; Value: 7; Range: 8-16; Abnormal: Below low normal; Units: MEQ/L; Status: F Test: CALCIUM LEVEL; Value: 9.8; Range: 8.8-10.2; Units: MG/DL; Status: F Test Note: ; Units are mL/min/1.73 m2 Chronic Kidney Disease Staging per NKF: Stage I & II GFR >=60 Normal to Mildly Decreased Stage III GFR 30-59 Moderately Decreased Stage IV GFR 15-29 Severely Decreased Stage V GFR <15 Very Little GFR Left ESRD GFR <15 on TRANSONIC ENGINEER Lab Order: Sed Rate; 07/01/16 09:45 Test: ERYTHROCYTE SEDIMENTATION RATE; Value: 86; Range: 0-30; Abnormal: Above high normal; Units: mm/hr; Status: F Lab Order: CRP; 07/01/16 09:45 Test: C REACTIVE PROTEIN QUANTITATIV; Value: 6.13; Range: 0.00-0.30; Abnormal: Above high normal; Units: MG/DL; Status: F Radiology Order: CT Neck With Contrast Test: CT Neck With Contrast REASON FOR EXAMINATION: LEFT NECK ABSCESS; CT NECK WITH CONTRAST:; ; HISTORY: Abscess.; ; CONTRAST: Isovue 370, 75 mL.; ; COMPARISON: 06/26/2016.; ; The naso-, truong-, and hypopharynx, larynx and subglottic trachea are normal in; appearance. The salivary and thyroid glands are normal. A 1.7 cm abscess is; present in the left posterior triangle at the level of the oropharynx. There is; enlargement of the left sternocleidomastoid, left platysma and left posterior; paraspinal musculature. Stranding is present in the surrounding subcutaneous; tissue. This is consistent with edema. Small lymph nodes less than 1 cm in size; are present in the internal jugular chains, posterior triangles, submandibular,; submental and supraclavicular areas. Atherosclerotic calcification is present at; the right carotid bifurcation. Degenerative change is present in the cervical; spine. The lung apices are clear. The visualized sinuses are clear.; ; IMPRESSION:; ; There is a 1.7 cm abscess in the left posterior triangle at the level of the; oropharynx. There is edema in the adjacent musculature and overlying; subcutaneous tissue. There is no mass effect on the oropharynx.; ; ; Signed by; Stefan Rizvi MD 07/01/2016 11:14 A; Outcome: 11:24 Discharge ordered by Provider. dt4 11:33 Discharge Assessment: Patient awake, alert and oriented x 3. No cognitive and/or hs1 functional deficits noted. Patient verbalized understanding of disposition instructions. patient administered narcotics - no. The following High Risk Discharge criteria are identified: None. Discharged to home ambulatory, with family. Condition: stable. Discharge instructions given to patient, family, Instructed on discharge instructions, follow up and referral plans. medication usage, Demonstrated understanding of instructions, medications, Pt was receptive of discharge instructions/ teaching. Prescriptions given X 1. CT Study completed. Property sent home with patient. 11:34 Patient left the ED. hs1 Signatures: Dispatcher [employer] Cheyenne Delcid, RN RN Monika Day, Reg Reg Yuki An RN RN hs1 Vipul Bautistal1 Susan Prieto RN RN mk4 Molly Alan, JAY PA-C dt4 Tavon Jade jp5 Shara Gan lr2 Corrections: (The following items were deleted from the chart) 09:48 09:47 Inserted saline lock: 20 gauge in left antecubital area hs1 hs1 Chart Complete MTDD
== END 2016-07-01 11:34 | disposition home or self-care (01) ==
LOC: M ED 08:58
DX: L02.11 Cutaneous abscess of neck (principal); J30.2 Other seasonal allergic rhinitis; Z79.899 Other long term (current) drug therapy; Z79.2 Long term (current) use of antibiotics; Z87.891 Personal history of nicotine dependence
CPT/HCPCS: 36415; 70491; 80048; 85025; 85652; 86140; 96374; 99284; J1885; Q9967

== ENCOUNTER → 2016-07-31 | Outpatient (CLI) | payer BC, OTHER ==
[~2016-07-31] VITALS: Ht 162.6 cm; Wt 59.0 kg
[~2016-07-31] MED LIST: CALC600T10 PO; CO Q100C10 PO; KRIL300C PO; LIDOCAINE 2% INJ 100 MG/5 ML SDV (FOR ANES.) As Ordered ONE; MULT1TAB10 PO; NS 1,000 ML IV SCH; PROPOFOL 200 MG/20 ML VIAL As Ordered ONE; VITA100054 PO; ZYRT10TA2 PO
--- NOTE | 2016-07-31 12:44 | ROOR ---
Patient Name: rTice Jones Procedure Date: 07/31/2016 12:27 PM Date of : 1955 Age: 60 Room: [facility] Gender: Female Note Status: Finalized Procedure: Colonoscopy Indications: Screening for colorectal malignant neoplasm Providers: Hernesto Figueroa Jr, MD Referring MD: Liana Garcia NP Requesting Provider: Medicines: Propofol per Anesthesia Complications: No immediate complications. Procedure: Pre-Anesthesia Assessment: - Prior to the procedure, a History and Physical was performed, and patient medications and allergies were reviewed. The patient is competent. The risks and benefits of the procedure and the sedation options and risks were discussed with the patient. All questions were answered and informed consent was obtained. Patient identification and proposed procedure were verified by the physician and the nurse in the pre-procedure area and in the procedure room. Mental Status Examination: alert and oriented. Airway Examination: normal oropharyngeal airway and neck mobility. Respiratory Examination: clear to auscultation. CV Examination: normal. ASA Grade Assessment: II - A patient with mild systemic disease. After reviewing the risks and benefits, the patient was deemed in satisfactory condition to undergo the procedure. The anesthesia plan was to use moderate sedation / analgesia (conscious sedation). Immediately prior to administration of medications, the patient was re-assessed for adequacy to receive sedatives. The heart rate, respiratory rate, oxygen saturations, blood pressure, adequacy of pulmonary ventilation, and response to care were monitored throughout the procedure. The physical status of the patient was re-assessed after the procedure. The Colonoscope was introduced through the anus and advanced to the cecum, identified by appendiceal orifice and ileocecal valve. The colonoscopy was performed without difficulty. The patient tolerated the procedure well. The quality of the bowel preparation was adequate and good. Findings: The perianal exam findings include non-thrombosed internal hemorrhoids. The rectum, recto-sigmoid colon, sigmoid colon, descending colon, transverse colon, ascending colon, cecum, appendiceal orifice and ileocecal valve appeared normal. Impression: - Non-thrombosed internal hemorrhoids found on perianal exam. - The rectum, recto-sigmoid colon, sigmoid colon, descending colon, transverse colon, ascending colon, cecum, appendiceal orifice and ileocecal valve are normal. - No specimens collected. Recommendation: - Discharge patient to home (ambulatory). - Repeat colonoscopy in 10 years for screening purposes. Hernesto Figueroa MD Hernesto Figueroa Jr, MD 07/31/2016 12:44:46 PM This report has been signed electronically. Number of Addenda: 0 Note Initiated On: 07/31/2016 12:27 PM Estimated Blood Loss: Estimated blood loss: none.
[2016-07-31 13:10] VITALS: BP 125/78
== END | disposition home or self-care (01) ==
LOC: M OPP 11:26
PROVIDERS: ATTEND Surgery
DX: Z12.11 Encounter for screening for malignant neoplasm of colon (principal); K64.8 Other hemorrhoids; R12 Heartburn; Z79.899 Other long term (current) drug therapy; Z80.3 Family history of malignant neoplasm of breast; Z80.8 Family history of malignant neoplasm of other organs or systems; Z87.891 Personal history of nicotine dependence
CPT/HCPCS: 99156; G0121

== ENCOUNTER → 2016-12-31 | Outpatient (REF) | payer OTHER ==
[~2016-12-31] MED LIST changes: -CALC600T10 PO; +CALC600T31 PO; -LIDOCAINE 2% INJ 100 MG/5 ML SDV (FOR ANES.) As Ordered ONE; -NS 1,000 ML IV SCH; -PROPOFOL 200 MG/20 ML VIAL As Ordered ONE
== END ==
LOC: M WUC 16:31
PROVIDERS: ATTEND Physician Assistant
DX: N39.0 Urinary tract infection, site not specified (principal)

== ENCOUNTER → 2017-12-29 | Outpatient (CLI) | payer OTHER ==
[2017-12-29 12:26] LABS: ALBUMIN 3.9 GM/DL (3.2-5.2); ALBUMIN/GLOBULIN RATIO 1.15 (1.00-1.93); ALKALINE PHOSPHATASE 65 U/L (45-117); ALT/SGPT 35 U/L (12-78); ANION GAP 7 MEQ/L (8-16); AST/SGOT 24 U/L (7-37); BILIRUBIN,TOTAL 0.6 MG/DL (0.2-1.0); BLOOD UREA NITROGEN 19 MG/DL (7-18); CALCIUM LEVEL 9.5 MG/DL (8.8-10.2); CARBON DIOXIDE LEVEL 29 MEQ/L (21-32); CHLORIDE LEVEL 108 MEQ/L (98-107); CREATININE FOR GFR 0.96 MG/DL (0.55-1.30); GLOMERULAR FILTRATION RATE > 60.0 (>45); GLUCOSE, FASTING 82 MG/DL (70-100); SODIUM LEVEL 144 MEQ/L (136-145); TOTAL PROTEIN 7.3 GM/DL (6.4-8.2)
[2017-12-29 12:27] LABS: CHOLESTEROL LEVEL 308 MG/DL (<200); CHOLESTEROL RISK RATIO 3.384 (<5); HDL CHOLESTEROL 91 MG/DL (>40); LDL CHOLESTEROL 172.8 MG/DL (<100); NON-HDL-C 217 MG/DL; TRIGLYCERIDES LEVEL 221 MG/DL (<150)
[2017-12-29 12:43] LABS: TOTAL 25(OH) VITAMIN D 57.5 NG/ML (30.0-100.0)
== END ==
LOC: M WUC 08:30
DX: E78.5 Hyperlipidemia, unspecified (principal); E55.9 Vitamin D deficiency, unspecified

== ENCOUNTER → 2018-06-21 | Outpatient (CLI) | payer OTHER, BC ==
[~2018-06-21] MED LIST changes: +ZYRT10CA5 PO; -ZYRT10TA2 PO
[2018-06-21 13:56] LABS: ALT/SGPT 49 U/L (12-78); BILIRUBIN,TOTAL 0.6 MG/DL (0.2-1.0); BLOOD UREA NITROGEN 16 MG/DL (7-18); CALCIUM LEVEL 9.1 MG/DL (8.8-10.2); CARBON DIOXIDE LEVEL 27 MEQ/L (21-32); CHLORIDE LEVEL 106 MEQ/L (98-107); CHOLESTEROL LEVEL 175 MG/DL (<200); CHOLESTEROL RISK RATIO 2.397 (<5); CREATININE FOR GFR 0.87 MG/DL (0.55-1.30); GLOMERULAR FILTRATION RATE > 60.0 (>45); GLUCOSE, FASTING 85 MG/DL (70-100); HDL CHOLESTEROL 73 MG/DL (>40); LDL CHOLESTEROL 79 MG/DL (<100); NON-HDL-C 102 MG/DL; POTASSIUM SERUM 4.3 MEQ/L (3.5-5.1); SODIUM LEVEL 140 MEQ/L (136-145); TOTAL PROTEIN 7.3 GM/DL (6.4-8.2); TRIGLYCERIDES LEVEL 116 MG/DL (<150)
== END ==
LOC: M WUC 09:48
PROVIDERS: ATTEND Nurse Practitioner Family
DX: E78.2 Mixed hyperlipidemia (principal)

== ENCOUNTER → 2019-01-15 | Outpatient (CLI) | payer OTHER, BC ==
[2019-01-15 15:16] LABS: ALBUMIN 3.6 GM/DL (3.2-5.2); ALT/SGPT 36 U/L (12-78); BILIRUBIN,TOTAL 0.4 MG/DL (0.2-1.0); BLOOD UREA NITROGEN 11 MG/DL (7-18); CALCIUM LEVEL 9.4 MG/DL (8.8-10.2); CARBON DIOXIDE LEVEL 30 MEQ/L (21-32); CHLORIDE LEVEL 108 MEQ/L (98-107); CHOLESTEROL LEVEL 168 MG/DL (<200); CREATININE FOR GFR 0.88 MG/DL (0.55-1.30); GLOMERULAR FILTRATION RATE > 60.0 (>45); GLUCOSE, FASTING 90 MG/DL (70-100); HDL CHOLESTEROL 80 MG/DL (>40); LDL CHOLESTEROL 64 MG/DL (<100); NON-HDL-C 88 MG/DL; POTASSIUM SERUM 4.2 MEQ/L (3.5-5.1); SODIUM LEVEL 142 MEQ/L (136-145); TOTAL PROTEIN 6.8 GM/DL (6.4-8.2); TRIGLYCERIDES LEVEL 120 MG/DL (<150)
== END ==
LOC: M WUC 08:08
PROVIDERS: ATTEND Nurse Practitioner Family
DX: E78.2 Mixed hyperlipidemia (principal)

== ENCOUNTER → 2020-05-02 | Outpatient (REF) | payer MEDICARE, OTHER | LOC: M WUC 19:22 | PROVIDERS: ATTEND Physician Assistant | DX: R30.0 Dysuria (principal) ==

== ENCOUNTER → 2020-06-09 | Outpatient (CLI) | payer MEDICARE, OTHER ==
[~2020-06-09] MED LIST changes: +ATOR1TAB21 PO; +CALC-211 PO; +CLAR10CA3 PO; +ESTR1TAB PO; +MIRA3350 PO; +VITA1CAP25 PO; +VITMTA PO
== END ==
LOC: M LABSMTC 08:55
PROVIDERS: ATTEND Anesthesiology
DX: Z01.812 Encounter for preprocedural laboratory examination (principal); Z20.822 Contact with and (suspected) exposure to COVID-19

== ENCOUNTER 2020-06-14 06:17 | Day surgery (SDC) | payer BC, OTHER ==
[~2020-06-14] VITALS: Ht 162.6 cm; Wt 65.8 kg
[2020-06-14] MEDS ORDERED: POVIDONE-IODINE 5% OPHTH PREP SOL 30ML As Ordered ONE (06:36)
[2020-06-14] MEDS ORDERED: CEFUROXIME 1MG/0.1ML INTRACAMERAL INJ As Ordered ONE (06:37)
[2020-06-14] MEDS ORDERED: DUOVISC (0.50ML VISCOAT/0.55ML PROVISC) OPHTH KIT As Ordered ONE (06:37)
[2020-06-14] MEDS ORDERED: BSS IRR 500ML/OMIDRIA 4ML IRR BAG (OR ONLY) As Ordered ONE (06:41)
[2020-06-14] MEDS ORDERED: PROPARACAINE 0.5% OPHTH SOL 15ML OD ONE (07:00)
[2020-06-14] MEDS ORDERED: TROPICAMIDE 1% OPHTH SOLN 2ML OD ONE (07:00)
[2020-06-14] MEDS ORDERED: PHENYLEPHRINE 2.5% OPHTH SOL 2ML OD ONE (07:00)
[2020-06-14] MEDS ORDERED: OFLOXACIN 0.3 % (OCUFLOX) OPTH SOL 5ML OD ONE (07:00)
[2020-06-14] MEDS ORDERED: MIDAZOLAM INJ 2MG/2ML VIAL (J2250 PER 1MG) As Ordered ONE (07:10)
[2020-06-14] MEDS ORDERED: fentaNYL 100 MCG/2 ML INJECTION (J3010) As Ordered ONE (07:10)
[2020-06-14 08:20] VITALS: BP 162/100
--- NOTE | 2020-06-15 10:57 | RO ---
OPERATIVE NOTE DATE OF OPERATION: 06/14/2020 PREOPERATIVE DIAGNOSIS: 1. Visually significant nuclear sclerotic cataract, right eye. POSTOPERATIVE DIAGNOSIS: 1. Visually significant nuclear sclerotic cataract, right eye. PROCEDURE: 1. Cataract extraction with use of Vivity, intraoperative aberrometry and placement of intraocular lens [id number], 20.0 D, right eye. SURGEON: Micheal Michael DO ANESTHESIA: Local (Omidria with MAC) COMPLICATIONS: None POSTOPERATIVE CONDITION: Stable INDICATIONS FOR SURGERY: 1. Blurred vision affecting patient's activities of daily living. DESCRIPTION OF PROCEDURE: The patient was seen in the preoperative area and properly identified. The correct operative eye was identified and marked. The patient received topical anesthetic, antibiotics, and topical dilating drops. The patient was then transferred to the operating room. The correct side was re-identified and a time-out was performed. The eye was prepped and draped in a sterile fashion. The eyelids were isolated with Tegaderm tape and the lids were held open with an adjustable speculum. A 1.0mm paracentesis incision was made. Omidria was then injected into the anterior chamber. Viscoelastic was then injected into the anterior chamber through the paracentesis. Using a 2.4mm sharp-tipped keratome, the anterior chamber was entered via a temporal clear cornea incision. A continuous curvilinear capsulorrhexis was created with Utrata forceps. Hydrodissection was performed with BSS on a blunt cannula until the nucleus was able to rotate freely. The crystalline lens was phacoemulsified and aspirated. Irrigation/aspiration was used to remove the cortical material Cohesive viscoelastic was placed into the capsular bag to deepen it. The implant was placed into the capsular bag and allowed to unfold. Placement was confirmed by visualizing the anterior capsulorrhexis. Irrigation/aspiration was used to remove the viscoelastic. The clear corneal incision was hydrated with BSS on a blunt cannula. The lens was well positioned. Intracameral antibiotic was injected into the anterior chamber. The incisions were then tested for leaks and found to be negative. The eye was then palpated for appropriate pressure and adjusted accordingly with BSS. The eyelid speculum was then carefully removed. A shield was placed over the eye. The patient tolerated the procedure well and was discharge to the recovery unit in a stable condition.
== END 2020-06-14 08:29 | disposition home or self-care (01) ==
LOC: M SDC 06:17
PROVIDERS: ATTEND Ophthalmology
DX: H25.11 Age-related nuclear cataract, right eye (principal); I10 Essential (primary) hypertension; E78.5 Hyperlipidemia, unspecified; K21.9 Gastro-esophageal reflux disease without esophagitis; Z87.891 Personal history of nicotine dependence; Z79.899 Other long term (current) drug therapy
CPT/HCPCS: 66984; 92015; J1097; J2250; J3010

== ENCOUNTER → 2020-06-16 | Outpatient (CLI) | payer MEDICARE, OTHER | LOC: M LABSMTC 08:19 | PROVIDERS: ATTEND Anesthesiology | DX: Z01.812 Encounter for preprocedural laboratory examination (principal); Z20.822 Contact with and (suspected) exposure to COVID-19 ==

== ENCOUNTER 2020-06-21 06:32 | Day surgery (SDC) | payer BC, OTHER ==
[~2020-06-21] VITALS: Ht 162.6 cm; Wt 65.3 kg
--- OUTSIDE RECORDS SUMMARY | 2020-06-21 06:35 | CCD | Continuity of Care Document ---
Author Author Trice Echeverria Organization Unknown Address [address] [place] [address] Phone [phone] Care Team Providers Care Environmental Engineering Manager Name Role Phone Mayra Rhodes AUTM [phone] Problems Active Problems Provider Date Elevated blood-pressure reading without diagnosis of h ypertension MARVA Echeverria Onset: 04/19/2020 Vitamin D deficiency MARVA Echeverria Onset: 04/19/2020 Social History Type Date Description Comments Sex Unknown ETOH Use consumes 1-2 glasses of wine per day Tobacco Use Start: Unknown End: Unknown Patient is a former smoker quit more than 30 years ago. 1ppd for 5 years Allergies, Adverse Reactions, Alerts Description No Known Drug Allergies Medications Active Medications SIG Qnty Indications Ordering Provide r Date Multivitamin Adult Tablets 1 by mouth every day Unknown Calcium 600 600mg Tablets 1 by mouth every day Unknown Vitamin D3 125mcg (5000 Ut) Tablet s one every day by mouth Unknown Zyrtec Allergy 10mg Capsules 1 by mouth every day Unknown Claritin 10mg Capsules 1 by mouth every day Unknown Miralax 17gm Packet 17 grams in liquid as directed every day as needed Unknown Estradiol 1mg Tablets 1 by mouth every day Unknown Atorvastatin Calcium 20mg Tablets 1 by mouth every day 30tabs MARVA Echeverria Buspirone HCL 5mg Tablets take one tablet by mouth as needed Unknown Azelastine HCL (Nasal) 0.1% Soluti on use 2 sprays in each nostril daily Unknown Immunizations Description No Information Available Vital Signs Date Vital Result Comment 05/16/2020 1:43pm BP Systolic 144 mmHg BP Diastolic 84 mmHg Heart Rate 64 /min Height 64 inches 5'4" Weight 148.00 lb O2 % BldC Oximetry 96 % BMI (Body Mass Index) 25.4 kg/m2 02/03/2020 8:21am BP Systolic 144 mmHg BP Diastolic 92 mmHg BP Systolic Recheck 132 mmHg BP Diastolic Recheck 94 mmHg Heart Rate 73 /min Height 64 inches 5'4" Weight 149.00 lb O2 % BldC Oximetry 97 % BMI (Body Mass Index) 25.6 kg/m2 Results Test Acquired Date Facility Test Result H/L Range Note Complete Blood Count 02/03/2020 [facility] Nephrology Social Worker: [place] Himanshu [place] [address] [phone] WBC 6.9 x10*3/UL 4.1 - 10.9 RBC 4.14 x10*6/UL Low 4.20 - 6.30 Hemoglobin 13.0 g/dL 12.0 - 18.0 Hematocrit 37.3 % 37.0 - 51.0 MCV 89.9 fL 80.0 - 97.0 MCH 31.3 pg 26.0 - 32.0 MCHC 34.8 g/dL 31.0 - 38.0 RDW 12.6 % 11.6 - 13.7 PLT 248 x10*3/UL 140 - 440 MPV 9.4 FL 7.8 - 11.0 Lymph % 36.3 % 10.0 - 58.5 Mid % 7.8 % 1.7 - 9.3 Neut % 55.9 % 37.0 - 92.0 Lymph # 2.5 x10*3/UL 0.6 - 4.1 Mid # 0.6 x10*3/UL 0.1 - 0.6 Neut # 3.8 x10*3/UL 2.0 - 7.8 Comprehensive Chem Profile 02/03/2020 [facility] Social Worker: Dr Himanshu [place] [address] [phone] Glucose 89 mg/dL 74 - 99 1 BUN 16 mg/dL 7 - 18 Creatinine 1.0 mg/dL 0.6 - 1.3 Sodium 139 mEq/L 136 - 145 Potassium 3.9 mEq/L 3.5 - 5.1 Chloride 102 mEq/L 98 - 107 Carbon Dioxide 29 mEq/L 21 - 32 Calcium 9.2 mg/dL 8.5 - 10.1 Alk. Phosphatase 64 mg/dL 46 - 116 Total Bilirubin 0.4 mg/dL 0.2 - 1.0 Ast (Sgot) 21 U/L 15 - 37 Alt (SGPT) 33 U/L 12 - 78 Albumin 3.6 g/dL 3.4 - 5.0 Total Protein 7.1 g/dL 6.4 - 8.2 A/G Ratio 1.03 CALC 1.00 - 1.90 GFR 56 mL/min Low >60 GFR >= 60 mL/min >60 2 Lipid Profile 02/03/2020 [facility] , Nephrology Social Worker: Dr Himanshu [place] [address] [phone] Cholesterol 204 mg/dL High 131 - 200 Triglycerides 212 mg/dL High 30 - 150 HDL Cholesterol 93 mg/dL High 35 - 60 LDL (Calculated) 69 CALC 50 - 159 Laboratory test finding 02/03/2020 [facility] [employer] ispiyush, aidee Nephrology Social Worker: [place] [address] [phone] Vitamin D 25-Hydroxy 89.9 High 24.0 - 80.0 3 1 100-125 mg/dL PRE-DIABET ES/FASTING >126 mg/dL DIABETES/FASTING 2 CHRONIC KIDNEY DISEASE STAGI NG PER NKF STAGE I & II GFR >= 60 NORMAL TO MILDLY DECREASED STAGE III GFR 30-59 MODERATELY DECREASED STAGE IV GFR 15-29 SEVERELY DECREASED STAGE V GFR <15 VERY LITTLE GFR LEFT ESRD GFR <15 ON MUSEUM LIBRARIAN 3 This test was performed kaleb [employer] Vitamin D immunoassay kit. Values obtained with different assay methods should not be used interchangeably. Procedures Date Code Description Status 04/18/2020 [id number] Mammogram Completed 04/12/2020 [id number] Diabetic Retinal Eye Exam Comple [facility] 03/01/2020 [id number] Diabetic Retinal Eye Exam Comple [facility] 04/13/2019 [id number] Mammogram Completed 07/31/2016 [id number] Colonoscopy Completed Medical Devices Description No Information Available Encounters Type Date Location Provider Dx Diagnosis Office Visit 05/16/2020 1:40p [facility] Mayra Lind, GAS DISPATCHER R03.0 Elevated blood-pressure reading, w/o jazmin gnosis of htn N95.1 Menopausal and female climac teric states Office Visit 02/03/2020 8:00a [facility] Mayra Lind, GAS DISPATCHER R03.0 Elevated blood-pressure reading, w/o jazmin gnosis of htn N95.1 Menopausal and female climac teric states E55.9 Vitamin D deficiency, unspec ified Z80.3 Family history of malignant neoplasm of breast Z80.0 Family history of malignant neoplasm of digestive organs Assessments Date Code Description Provider 05/16/2020 R03.0 Elevated blood-press ure reading, without diagnosis of hypertension MARVA Echeverria 05/16/2020 N95.1 Menopausal and female climacteri c states MARVA Echeverria 02/03/2020 R03.0 Elevated blood-press ure reading, without diagnosis of hypertension MARVA Echeverria 02/03/2020 N95.1 Menopausal and female climacteri c states MARVA Echeverria 02/03/2020 E55.9 Vitamin D deficiency, unspecifie d MARVA Echeverria 02/03/2020 Z80.3 Family history of malignant neop lasm of breast MARVA Echeverria 02/03/2020 Z80.0 Family history of malignant neop lasm of digestive organs MARVA Echeverria Plan of Treatment Future Appointment(s):* 08/15/2020 9:40 am - Nurse #2 at [facility] * 08/15/2020 10:00 am - MARVA Echeverria at [facility] 05/16/2020 - MARVA Echeverria* R03.0 Elevated blood-pressure reading, without diagnosis of hypertension* Comments:* Will check BP weekly and return with these results. Discussed low sodium diet, weight loss, and exercise. * N95.1 Menopausal and female climacteric states* Comments:* tolerating 1/2 tablet of the Estradiol. Will have her change to 1/2 tablet every other day and continue weaning. Functional Status Description No Information Available Mental Status Description No Information Available Referrals Refer to Reason for Referral Status Appt Date Micheal Michael DO DIRECT CASTING OPERATOR CONSULT FOR CATARACT EVALUATION Dominguez mcallister Notified 04/11/2020 [facility] [address] [place] [address] [phone]
--- OUTSIDE RECORDS SUMMARY | 2020-06-21 06:35 | CCD ---
Author Author Santi Germain MD [facility] Organization Santi Germain MD [facility] Address [address] [facility] [address] [place] [address] Phone Care Team Providers Care Clinic Lpn Name Role Phone Mayra Rhodes NP PP [phone] Micheal Michael DO Unavailable [phone] Reason for Referral No Reason for Referral Recorded Problems Includes: Active, inactive, and resolved Problems All Visits Onset Date - Time Resolved Date - Time Provider Co ndition Status Cataract Senile Posterior Subcapsular Polar 04/11/2020 - 12:00AM Micheal Michael DO Active Dry Eye Syndrome 04/11/2020 - 12:00AM Micheal garcia DO Active Vitreous Disorders Degeneration 04/11/2020 - 12:00AM Ray Michael DO Active Plan of Treatment Future Appointments Date Time Location Provider POST OP VISIT WITH PRE-OP 06/15/2020 1:20PM Santi leal MD [facility] Micheal Michael DO Extracapsular cataract removal w/IOL implant 06/21/2020 7:5 0AM [facility] Micheal Michael DO 1 Week Post OP 06/29/2020 1:20PM Santi Germain MD [facility] Ray Michael DO Assessments Includes: Assessments for all patient encounters Findings Encounter Date Posterior subcapsular polar senile cataract 1 WK PREOP FOR SURGERY with Micheal Michael DO 05/29/2020 Dry eye syndrome NEW PATIENT WITH REFERRAL with Micheal nicholson DO 04/11/2020 Posterior subcapsular polar senile cataract NEW PATIEN T WITH REFERRAL with Micheal Michael DO 04/11/2020 Vitreous degeneration NEW PATIENT WITH REFERRAL with Micheal Michael DO 04/11/2020 Instructions Instructions not supported for this document typeNo Instructions Recorded Medical Equipment - Implanted Devices Includes: Current and historical DevicesNo Medical Equipment Recorded Medications Includes: Current and historical Medications Current Medications (continue as prescribed) Inveltys 1% Ophthalmic Suspension 05/29/2020 Provid er: Micheal Michael DO Diagnosis: Posterior subcapsula r polar age-related cataract, right eye Day of surgery remove patch start one dr op two times a day in the right eye, RUN CARD. SEE PHARM NOTES BromSite 0.075% Ophthalmic Solution 05/29/2020 Prov ider: Micheal Michael DO Diagnosis: Posterior subcapsula r polar age-related cataract, right eye Three days prior to surgery start one dr op two times a day in the right eye, RUN CARD. SEE PHARM NOTES Moxifloxacin HCl 0.5% Ophthalmic Solution 05/29/2020 Provider: Micheal Michael DO Diagnosis: Posterior subcapsula r polar age-related cataract, right eye Three days prior to surgery start one drop four times a day in the right eye Azelastine HCl 0.1% Nasal Solution 04/11/2020 Provi ankur: Diagnosis: Claritin 10 MG Oral Tablet 04/11/2020 Provider: Diagnosis: Multi Vitamin Oral Tablet 04/11/2020 Provider: Diagnosis: Calcium 600 MG Oral Tablet 04/11/2020 Provider: Diagnosis: Vitamin D 47316 UNITS Oral Capsule 04/11/2020 Provi ankur: Diagnosis: twice a week MiraLax 17 GM/SCOOP Oral Powder 04/11/2020 Provider : Diagnosis: busPIRone HCl 5 MG Oral Tablet 04/11/2020 Provider: Diagnosis: Atorvastatin 20 mg Oral Tablet 04/11/2020 Provider: Diagnosis: Estradiol 0.5 MG Oral Tablet 04/11/2020 Provider: Diagnosis: Past Medications on file Lipitor 10 MG Oral Tablet 04/11/2020 - 04/11/2020 Provider: Diagnosis: Omeprazole 40 MG Oral Capsule Delayed Release 04/11/2020 - 1 06/12/2019 Provider: Diagnosis: metFORMIN HCl 500 MG Oral Tablet 04/11/2020 - 04/11/2020 Pro vider: Diagnosis: Losartan Potassium 100 MG Oral Tablet 04/11/2020 - 0 Provider: Diagnosis: valACYclovir HCl 1 GM Oral Tablet 04/11/2020 - 04/11/2020 Pr ovider: Diagnosis: Glucosamine 1500 Complex Oral Capsule 04/11/2020 - 0 Provider: Diagnosis: Multi Vitamin Oral Tablet 04/11/2020 - 04/11/2020 Provider: Diagnosis: Medications Administered Includes: Administered Medications in patient's chartNo Administered Medications Recorded Vital Signs Includes: Vital Signs from 06/15/2019 through 06/15/2020No Vital Signs Recorded For Specified Dates Results Includes: Results from 06/15/2019 through 06/15/2020No Results Recorded For Specified Dates History of Present Illness History of Present Illness not supported for this document typeNo History of Present Illness Recorded Social History Description Last Updated Tobacco non-user 05/29/2020 No tobacco use 05/29/2020 Not using drugs 05/29/2020 Smoking status : Former smoker 05/29/2020 Alcohol use glass wine 3-4 times a week 04/11/2020 Previous smoking history 04/11/2020 Procedures and Surgical History Includes: Procedures from 06/15/2019 through 06/15/2020 Procedures Code Diagnosis Performing Provider Service Location Service Date Intermediate Eye Exam Established Patient (Signi/Sep Eval. & Man.) 94639 Posterior subcapsular polar age-related cataract, right eye Micheal Hogan MD [facility] 05/29/2020 Ophthalmic biometry - IOL Master with IO L calculation (Right Side, WAIVER OF LIABILITY ON FILE (ABN)) 89529 Posterior subcapsular polar age-related cataract, right eye Micheal oHgan MD [facility] 05/29/2020 Medical Eye Exam 10164 Posterior subcapsula r polar age-related cataract, bilateral Micheal Hogan MD [facility] 04/11/2020 Surgical History Last Updated Surgical / procedural history Hysterectomy 04/11 Medical History Includes: Medical History in patient's chart Description Last Updated No recent change in medical history 05/29/2020 Reported medical history Menopause, Anxiety, Allergie s 04/11/2020 History of hyperlipidemia 04/11/2020 Family History Includes: Family History in patient's chart Description Last Updated Family history of cancer 05/29/2020 Paternal history of heart disease 05/29/2020 Thyroid disorder 05/29/2020 Review of Systems Review of Systems not supported for this document typeNo Review of Systems Recorded Mental Status Mental Status not supported for this document typeNo Mental Status Recorded Functional Status Functional Status not supported for this document typeNo Functional Status Recorded Physical Exam Physical Exam not supported for this document typeNo Physical Exam Recorded Immunizations Includes: Immunizations in patient's chartNo Immunizations Recorded Allergies Includes: Active, inactive, and resolved AllergiesNo Known Allergies Encounters Includes: Encounters from 06/15/2019 through 06/15/2020 Encounter Provider Location Date Check-In Time Check-Out Time D iagnosis Extracapsular cataract removal w/IOL implant Micheal [facility] [place] 06/14/2020 05/29/2020 8:30AM 7:04AM 1 WK PREOP FOR SURGERY [facility] 05/29/2020 1:27PM 2:28PM Cataract Senile Posterior Lemus bcapsular Polar NEW PATIENT WITH REFERRAL [facility] 04/11/2020 12:45PM 2:20PM Dry Eye Syndrome, Ca taract Senile Posterior Subcapsular Polar, Vitreous Disorders Degeneration Insurance Includes: Active Insurance Policies Plan Name Member ID Group # Subscriber Relationship Effective Da carson 1 - Medicare Part B [facility] ([facility]) [id number] Trice guerrier Self 2 - [employer] Employees ([place]) - [facility] [id number] [facility] Advance Directives Includes: Current Advance DirectivesNo Advance Directives Recorded Health Concerns Includes: Active Health ConcernsNo Active Health Concerns Recorded Goals Includes: Active GoalsNo Active Goals Recorded Interventions Includes: Interventions for active GoalsNo Interventions Recorded Evaluations & Outcomes Includes: Evaluations & Outcomes for active GoalsNo Outcomes Recorded
--- OUTSIDE RECORDS SUMMARY | 2020-06-21 06:36 | CCD ---
Author Author Santi Germain MD [facility] Organization Santi Germain MD [facility] Address [address] [facility] [address] [place] [address] Phone Care Team Providers Care Cytotechnologist/Histotechnologist Name Role Phone Mayra Rhodes NP PP [phone] Micheal Michael DO Unavailable [phone] Reason for Referral No Reason for Referral [...] Ray Michael DO Active Plan of Treatment Pending Tests Order Diagnosis Results Due Ordering Provi ankur Testing Ordered - AScan A-Scan IOL Master Posterior subcap sular polar age- related cataract, bilateral 06/10/20 Micheal Michael DO Assessments Includes: Assessments for all patient encounters Findings Encounter Date Dry eye syndrome NEW PATIENT WITH REFERRAL [...] historical Medications Current Medications (continue as prescribed) Estradiol 0.5 MG Oral Tablet 04/11/2020 Provider: Diagnosis: Atorvastatin 20 mg Oral Tablet 04/11/2020 Provider: Diagnosis: busPIRone HCl 5 MG Oral Tablet 04/11/2020 Provider: Diagnosis: Azelastine HCl 0.1% Nasal Solution 04/11/2020 Provi ankur: Diagnosis: Claritin 10 MG Oral Tablet 04/11/2020 Provider: Diagnosis: Multi Vitamin Oral Tablet 04/11/2020 Provider: Diagnosis: Calcium 600 MG Oral Tablet 04/11/2020 Provider: Diagnosis: Vitamin D 57733 UNITS Oral Capsule 04/11/2020 Provi ankur: Diagnosis: twice a week MiraLax 17 GM/SCOOP Oral Powder 04/11/2020 Provider : Diagnosis: Past Medications on file Lipitor 10 [...] Recorded Vital Signs Includes: Vital Signs from 04/11/2019 through 04/11/2020No Vital Signs Recorded For Specified Dates Results Includes: Results from 04/11/2019 through 04/11/2020No Results Recorded For Specified Dates History of Present Illness History of Present Illness not supported for this document typeNo History of Present Illness Recorded Social History Description Last Updated Alcohol use glass wine 3-4 times a week 04/11/2020 No tobacco use 04/11/2020 Not using drugs 04/11/2020 Previous smoking history 04/11/2020 Smoking status : Former smoker 04/11/2020 Procedures and Surgical History Includes: Procedures from 04/11/2019 through 04/11/2020 Procedures Code Diagnosis Performing Provider Service Location Service Date Medical Eye Exam 72434 CATARACT SENILE POSTERIOR SUBCA PSULAR POLAR Micheal Michael DO 04/11/2020 Surgical History Last Updated Surgical / procedural history Hysterectomy 2000 04/11 Medical History Includes: Medical History in patient's chart Description Last Updated Reported medical history Menopause, Anxiety, Allergie s 04/11/2020 History of hyperlipidemia 04/11/2020 Family History Includes: Family History in patient's chart Description Last Updated Family history of cancer 04/11/2020 Paternal history of heart disease 04/11/2020 Thyroid disorder 04/11/2020 Review of Systems Review of Systems not supported for this document typeNo Review of Systems Recorded Mental Status Mental Status not supported for this document type Description Oriented to time, place, and person Difficulty reading Anxiety Functional Status Functional Status not supported for this document typeNo Functional Status Recorded Physical Exam Physical Exam not supported for this document typeNo Physical Exam Recorded Immunizations Includes: Immunizations in patient's chartNo Immunizations Recorded Allergies Includes: Active, inactive, and resolved AllergiesNo Known Allergies Encounters Includes: Encounters from 04/11/2019 through 04/11/2020 Encounter Provider Location Date Check-In Time Check-Out Time D iagnosis NEW PATIENT WITH REFERRAL Micheal Hogan MD [facility] 04/11/2020 12:45PM 11:59PM Dry Eye Syndrome, Ca taract Senile Posterior Subcapsular Polar, Vitreous Disorders Degeneration Insurance Includes: Active Insurance Policies Plan Name Member ID Group # Subscriber Relationship Effective Da carson 1 - Medicare Part B [facility] ([facility]) [id number] Trice guerrier Self 2 - [facility] Employees ([place]) - [facility] [id number] [facility] Advance Directives Includes: Current Advance DirectivesNo Advance Directives Recorded Health Concerns Includes: Active Health ConcernsNo Active Health Concerns Recorded Goals Includes: Active GoalsNo Active Goals Recorded Interventions Includes: Interventions for active GoalsNo Interventions Recorded Evaluations & Outcomes Includes: Evaluations & Outcomes for active GoalsNo Outcomes Recorded
--- OUTSIDE RECORDS SUMMARY | 2020-06-21 06:36 | CCD | Continuity of Care Document ---
Author Author Trice GARCIA [place] Organization Unknown Address [address] [place] [address] [place] [address] Phone [phone] Care Team Providers Care Vp Legal Affairs Name Role Phone Jswallace Mayra BOYKIN AUTM [phone] Anoop Co [employer] AUTM [phone] Problems Active Problems Provider Date Acute cystitis Bruce Browning, P.A. Onset: 2010 Social History Type Date Description Comments Sex Unknown Tobacco Use Start: Unknown End: Unknown Quit 1989 ETOH Use Drinks 3 Alcoholic Beverages Per Week Tobacco Use Start: Unknown End: Unknown Patient is a former smoker quit 1989 Smoking Status Reviewed: 05/02/20 Patient is a former smoker qu it 1989 Allergies, Adverse Reactions, Alerts Active Allergies Reaction Severity Comments Date Seasonal sneezing runny nose Moderate 06/12/19 17 Inactive Allergies NKDA 09/26/2009 Medications Active Medications SIG Qnty Indications Ordering Provide r Date Nitrofurantoin Macrocrystal 100mg Capsules take one tab by mouth twice a day x 7 days 14caps R30.0 Himanshu Zamora JR., M.D. 05/02/2020 Atorvastatin Calcium 20mg Tablets take one tablet daily at hs 90tabs E78.5 Himanshu Zamora JR., M.D. 12/29/2019 Mvi Unknown Calcium 600 600mg Tablets qd Unknown Vitamin D-1000 1000Unit Tablets twice a week Unknown Claritin-D 12 Hour 5 -120mg Tablets ER 12HR Unknown Miralax Unknown Estradiol 1mg Tablets Unknown Buspirone HCL as needed Unknown Azelastine HCL (Nasal) as needed Unknown Immunizations Description No Information Available Vital Signs Date Vital Result Comment 05/02/2020 3:22pm BP Systolic 145 mmHg BP Diastolic 95 mmHg Heart Rate 93 /min Respiratory Rate 16 /min O2 % BldC Oximetry 97 % Body Temperature 97.5 F Weight 147.00 lb Pain Level 2 12/29/2019 9:17am BP Systolic 152 mmHg BP Diastolic 84 mmHg Heart Rate 72 /min Respiratory Rate 12 /min O2 % BldC Oximetry 98 % Body Temperature 98.2 F Weight 142.00 lb Height 64 inches 5'4" BMI (Body Mass Index) 24.4 kg/m2 Pain Level 0 Results Test Acquired Date Facility Test Result H/L Range Note Laboratory test finding 05/02/[address] [address] [phone] Urine Culture FULL REPORT IN L <SEE NOTE> Normal 1, 2 1 Rx Nitrofurantion 2 FULL REPORT IN LAB NOTES (eC W and [facility]). ORGANISM 1: ESCHERICHIA COLI COLONY COUNT >100,000 ORGANISM 1: ESCHERICHIA COLI ESCHERICHIA COLI: REACTION TRIMETHOPRIM/SULFAMETHOXAZOLE IV 160mg TMP & 800mg SMXq6h <=20 S TRIMETHOPRIM/SULFAMETHOXAZOLE PO Bactrim DS Bid <=20 S AMPICILLIN IV 500mg q6h <=2 S AMPICILLIN PO 500mg q6h fasting <=2 S GENTAMICIN IV 80mg q8h <=1 S NITROFURANTOIN PO 100mg BID <=16 S CEFAZOLIN IV 1gm q8h <=4 S LEVOFLOXACIN IV 500mg qd <=0.12 S LEVOFLOXACIN PO 250mg qd <=0.12 S LEVOFLOXACIN PO 500mg qd <=0.12 S TOBRAMYCIN IV 80mg q8h <=1 S CEFTRIAXONE IV 1gm q24h <=1 S CEFTAZIDIME IV 1gm q8h <=1 S AMPICILLIN/SULBACTAM IV 1.5g q6h <=2 S PIPERACILLIN/TAZOBACTAM IV 2.25 gm q6h <=4 S AZTREONAM IV 1gm q8h <=1 S ERTAPENEM IV 1gm qd <=0.5 S MEROPENEM IV 1 gm q8h <=0.25 S MEROPENEM IV 500 mg q8h <=0.25 S TIGECYCLINE IV 50mg q12h <=0.5 S CEFEPIME IV 1 gm q12h <=1 S CEFEPIME IV 2 gm q12h <=1 S EXTD BRD SPCTRM BETA LACTAMASE IV NEGATIVE FOR ESBL Procedures Description No Information Available Medical Devices Description No Information Available Encounters Type Date Location Provider Dx Diagnosis Office Visit 05/02/2020 4:15p Main Office ROSA Celis U07 .1 Covid-19 R30.0 Dysuria Z20.828 Contact w and exposure to ot h viral communicable diseases Office Visit 12/29/2019 9:00a Main Office ROSA Celis E78 .5 Hyperlipidemia, unspecified Assessments Date Code Description Provider 05/02/2020 U07.1 Covid-19 ROSA Dyer 05/02/2020 R30.0 Dysuria ROSA Dyer 05/02/2020 Z20.828 Contact with and (duval spected) exposure to other viral communicable diseases ROSA Celis 12/29/2019 E78.5 Hyperlipidemia, unspecified Eulalio ROSA Castrejon Plan of Treatment No Information Available Functional Status Description No Information Available Mental Status Description No Information Available Referrals Description No Information Available
--- OUTSIDE RECORDS SUMMARY | 2020-06-21 06:36 | CCD | Continuity of Care Document ---
Author Author Trice GARCIA [place] Organization Unknown Address [address] [place] [address] [place] [address] Phone [phone] Care Team Providers Care Diffusion Operator Name Role Phone Jswallace Mayra BOYKIN AUTM [phone] Anoop [employer] AUTM [phone] Problems Active Problems Provider Date Acute cystitis [...] Index) 24.4 kg/m2 Pain Level 0 Results Description No Information Available Procedures Description No Information Available Medical Devices [...]
--- OUTSIDE RECORDS SUMMARY | 2020-06-21 06:36 | CCD | Continuity of Care Document ---
Author Author Trice GARCIA UT Organization Unknown Address [address] [place] [address] [place] [address] Phone [phone] Care Team Providers Care Unarmed Security Officer Name Role Phone Jswallace Mayra BOYKIN AUTM [phone] Anoop Co Publi AUTM [phone] Problems Active Problems Provider Date Acute cystitis [...]
--- OUTSIDE RECORDS SUMMARY | 2020-06-21 06:36 | CCD | Continuity of Care Document ---
Author Author Trice Echeverria Organization Unknown Address [address] [place] [address] Phone [phone] Care Team Providers Care Serging Machine Operator Automatic Name Role Phone Mayra Rhodes AUTM [phone] Problems Active Problems Provider Date Elevated blood-pressure [...] H/L Range Note Complete Blood Count 02/03/2020 [facility] [employer] aidee ang Tube Heater: [place] [address] [phone] WBC 6.9 x10*3/UL 4.1 - 10.9 RBC [...] 2.0 - 7.8 Comprehensive Chem Profile 02/03/2020 [facility] T[facility]: [place] [address] [phone] Glucose 89 mg/dL 74 - 99 1 [...] 60 mL/min >60 2 Lipid Profile 02/03/2020 [facility] Yevgeniy , aidee Tube Heater: [place] [address] [phone] Cholesterol 204 mg/dL High 131 - 200 Triglycerides 212 mg/dL High 30 - 150 HDL Cholesterol 93 mg/dL High 35 - 60 LDL (Calculated) 69 CALC 50 - 159 Laboratory test finding 02/03/2020 [facility] Dean blackwell, aidee Tube Heater: [place] [address] [phone] Vitamin D 25-Hydroxy 89.9 High 24.0 - 80.0 3 1 100-125 mg/dL PRE-DIABET ES/FASTING >126 mg/dL DIABETES/FASTING 2 CHRONIC KIDNEY DISEASE STAGI NG PER NKF STAGE I & II GFR >= 60 NORMAL TO MILDLY DECREASED STAGE III GFR 30-59 MODERATELY DECREASED STAGE IV GFR 15-29 SEVERELY DECREASED STAGE V GFR <15 VERY LITTLE GFR LEFT ESRD GFR <15 ON HEAVY EQUIPMENT OPERATOR APPRENTICE 3 This test was performed kaleb [employer] Vitamin D immunoassay kit. Values obtained with different assay methods should not be used interchangeably. Procedures Date Code Description Status 04/18/2020 [id number] Mammogram Completed 04/12/2020 [id number] Diabetic Retinal Eye Exam Comple [facility] 03/01/2020 [id number] Diabetic Retinal Eye Exam Comple [facility] 04/13/2019 [id number] Mammogram Completed 07/31/2016 [id number] Colonoscopy Completed Medical Devices Description No Information Available Encounters Type Date Location Provider Dx Diagnosis Office Visit 02/03/2020 8:00a [facility] [place], DEPARTMENT CLINICIAN R03.0 Elevated blood-pressure reading, w/o jazmin gnosis [...] Echeverria Plan of Treatment Future Appointment(s):* 08/15/2020 10:00 am - MARVA Echeverria at [facility] 05/16/2020 - MARVA Echeverria* R03.0 [...] Description No Information Available Referrals Refer to Dr Reason for Referral Status Appt Date Micheal Michael DO FIRE EXTINGUISHER SPRINKLER INSPECTOR CONSULT FOR CATARACT EVALUATION Dominguez [email or web address] Notified 04/11/2020 [facility] [id number] [place] [address] [phone]
--- OUTSIDE RECORDS SUMMARY | 2020-06-21 06:36 | CCD ---
Author Author [facility] Organization [facility] Address Unknown Phone Unavailable Care Team Providers Care Channel Process Supervisor Name Role Phone ALMANZASamuel WILL PA Unavailable Unavailable ALMANZA, W WILL PA Unavailable Unavailable ALMANZA, W WILL PA Unavailable Unavailable ALMANZA, W WILL PA Unavailable Unavailable ALMANZA, W WILL PA Unavailable Unavailable ALMANZA, W WILL PA Unavailable Unavailable ALMANZA, W WILL PA Unavailable Unavailable ALMANZA, W WILL PA Unavailable Unavailable ALMANZA, W WILL PA Unavailable Unavailable ALMANZA, W WILL PA Unavailable Unavailable ALMANZA, W WILL PA Unavailable Unavailable ALMANZA, W WILL PA Unavailable Unavailable ALMANZA, W WILL PA Unavailable Unavailable Blakely, Breanna PIT SHOVEL OPERATOR Unavailable Unavailable Blakely, Breanna PIT SHOVEL OPERATOR Unavailable Unavailable Blakely, Breanna PIT SHOVEL OPERATOR Unavailable Unavailable Blakely, Breanna PIT SHOVEL OPERATOR Unavailable Unavailable Blakely, Breanna PIT SHOVEL OPERATOR Unavailable Unavailable Blakely, Breanna PIT SHOVEL OPERATOR Unavailable Unavailable Blakely, Breanna PIT SHOVEL OPERATOR Unavailable Unavailable Blakely, Breanna PIT SHOVEL OPERATOR Unavailable Unavailable Blakely, Breanna PIT SHOVEL OPERATOR Unavailable Unavailable Blakely, Breanna PIT SHOVEL OPERATOR Unavailable Unavailable Blakely, Breanna PIT SHOVEL OPERATOR Unavailable Unavailable KAM, W MATT PA Unavailable Unavailable KAM, W MATT PA Unavailable Unavailable KAM, W MATT PA Unavailable Unavailable KAM, W MATT PA Unavailable Unavailable KAM, W MATT PA Unavailable Unavailable KAM, W MATT PA Unavailable Unavailable KAM, W MATT PA Unavailable Unavailable KAM, W MATT PA Unavailable Unavailable KAM, W MATT PA Unavailable Unavailable KAM, W MATT PA Unavailable Unavailable KAM, W MATT PA Unavailable Unavailable KAM, W MATT PA Unavailable Unavailable KAM, W MATT PA Unavailable Unavailable KAM, W MATT PA Unavailable Unavailable KAM, W MATT PA Unavailable Unavailable KAM, W MATT PA Unavailable Unavailable KAM, W MATT PA Unavailable Unavailable KAM, W MATT PA Unavailable Unavailable KAM, W MATT PA Unavailable Unavailable KAM, W MATT PA Unavailable Unavailable KAM, W MATT PA Unavailable Unavailable KAM, W MATT PA Unavailable Unavailable KAM, W MATT PA Unavailable Unavailable KAM, W MATT PA Unavailable Unavailable KAM, W MATT PA Unavailable Unavailable KAM, W MATT PA Unavailable Unavailable KAM, W MATT PA Unavailable Unavailable KMA, W MATT PA Unavailable Unavailable KAM, W MATT PA Unavailable Unavailable KAM, W MATT PA Unavailable Unavailable KAM, W MATT PA Unavailable Unavailable KAM, W MATT PA Unavailable Unavailable KAM, W MATT PA Unavailable Unavailable KAM, W MATT PA Unavailable Unavailable KAM, W MATT PA Unavailable Unavailable KAM, W MATT PA Unavailable Unavailable KAM, W MATT PA Unavailable Unavailable KAM, W MATT PA Unavailable Unavailable KAM, W MATT PA Unavailable Unavailable KAM, W MATT PA Unavailable Unavailable KAM, W MATT PA Unavailable Unavailable KAM, W MATT PA Unavailable Unavailable KAM, W MATT PA Unavailable Unavailable KAM, W MATT PA Unavailable Unavailable KAM, W MATT PA Unavailable Unavailable KAM, W MATT PA Unavailable Unavailable LePine, M Mayra BASIC SCIENCES DEAN Unavailable Unavailable LePine, M Mayra BASIC SCIENCES DEAN Unavailable Unavailable LePine, M Mayra BASIC SCIENCES DEAN Unavailable Unavailable LePine, M Mayra BASIC SCIENCES DEAN Unavailable Unavailable LePine, M Mayra BASIC SCIENCES DEAN Unavailable Unavailable LePine, M Mayra BASIC SCIENCES DEAN Unavailable Unavailable LePine, M Mayra BASIC SCIENCES DEAN Unavailable Unavailable LePine, M Mayra BASIC SCIENCES DEAN Unavailable Unavailable LePine, M Mayra BASIC SCIENCES DEAN Unavailable Unavailable LePine, M Mayra BASIC SCIENCES DEAN Unavailable Unavailable LePine, M Mayra BASIC SCIENCES DEAN Unavailable Unavailable LePine, M Mayra BASIC SCIENCES DEAN Unavailable Unavailable LePine, M Mayra BASIC SCIENCES DEAN Unavailable Unavailable LePine, M Mayra BASIC SCIENCES DEAN Unavailable Unavailable LePine, M Mayra BASIC SCIENCES DEAN Unavailable Unavailable LePine, M Mayra BASIC SCIENCES DEAN Unavailable Unavailable LePine, M Mayra BASIC SCIENCES DEAN Unavailable Unavailable LePine, M Mayra BASIC SCIENCES DEAN Unavailable Unavailable LePine, M Mayra BASIC SCIENCES DEAN Unavailable Unavailable LePine, M Mayra BASIC SCIENCES DEAN Unavailable Unavailable LePine, M Mayra BASIC SCIENCES DEAN Unavailable Unavailable LePine, M Mayra BASIC SCIENCES DEAN Unavailable Unavailable LePine, M Mayra BASIC SCIENCES DEAN Unavailable Unavailable LePine, M Mayra BASIC SCIENCES DEAN Unavailable Unavailable LePine, M Mayra BASIC SCIENCES DEAN Unavailable Unavailable LePine, M Mayra BASIC SCIENCES DEAN Unavailable Unavailable LePine, M Mayra BASIC SCIENCES DEAN Unavailable Unavailable LePine, M Mayra BASIC SCIENCES DEAN Unavailable Unavailable LePine, M Mayra BASIC SCIENCES DEAN Unavailable Unavailable LePine, M Mayra BASIC SCIENCES DEAN Unavailable Unavailable LePine, M Mayra BASIC SCIENCES DEAN Unavailable Unavailable LePine, M Mayra BASIC SCIENCES DEAN Unavailable Unavailable LePine, M Mayra BASIC SCIENCES DEAN Unavailable Unavailable LePine, M Mayra BASIC SCIENCES DEAN Unavailable Unavailable LePine, M Mayra BASIC SCIENCES DEAN Unavailable Unavailable LePine, M Mayra BASIC SCIENCES DEAN Unavailable Unavailable LePine, M Mayra BASIC SCIENCES DEAN Unavailable Unavailable LePine, M Mayra BASIC SCIENCES DEAN Unavailable Unavailable LePine, M Mayra BASIC SCIENCES DEAN Unavailable Unavailable LePine, M Mayra BASIC SCIENCES DEAN Unavailable Unavailable LePine, M Mayra BASIC SCIENCES DEAN Unavailable Unavailable LePine, M Mayra BASIC SCIENCES DEAN Unavailable Unavailable LePine, M Mayra BASIC SCIENCES DEAN Unavailable Unavailable LePine, M Mayra BASIC SCIENCES DEAN Unavailable Unavailable LePine, M Mayra BASIC SCIENCES DEAN Unavailable Unavailable LePine, M Mayra BASIC SCIENCES DEAN Unavailable Unavailable LePine, M Mayra BASIC SCIENCES DEAN Unavailable Unavailable LePine, M Mayra BASIC SCIENCES DEAN Unavailable Unavailable LePine, M Mayra BASIC SCIENCES DEAN Unavailable Unavailable LePine, M Mayra BASIC SCIENCES DEAN Unavailable Unavailable LePine, M Mayra BASIC SCIENCES DEAN Unavailable Unavailable LePine, M Mayra BASIC SCIENCES DEAN Unavailable Unavailable LePine, M Mayra BASIC SCIENCES DEAN Unavailable Unavailable LePine, M Mayra BASIC SCIENCES DEAN Unavailable Unavailable LePine, M Mayra BASIC SCIENCES DEAN Unavailable Unavailable LePine, M Mayra BASIC SCIENCES DEAN Unavailable Unavailable Elly MICHAEL DO Unavailable [phone] Elly MICHAEL DO Unavailable [phone] Elly MICHAEL DO Unavailable [phone] Elly MICHAEL DO Unavailable [phone] Elly MICHAEL DO Unavailable [phone] Elly MICHAEL DO Unavailable [phone] Elly MICHAEL DO Unavailable [phone] Elly MICHAEL DO Unavailable [phone] Elly MICHAEL DO Unavailable [phone] Elly MICHAEL DO Unavailable [phone] Elly MICHAEL DO Unavailable [phone] FRANCISCA, A. YUE DO Unavailable [phone] Casimiro MICHAEL. YUE DO Unavailable [phone] Casimiro MICHAEL. YUE DO Unavailable [phone] Casimiro MICHAEL. YUE DO Unavailable [phone] Elly MICHAEL YUE DO Unavailable [phone] Elly MICHAEL YUE DO Unavailable [phone] Casimiro MICHAEL. YUE DO Unavailable [phone] Casimiro MICHAEL. YUE DO Unavailable [phone] Elly MICHAEL YUE DO Unavailable [phone] Casimiro MICHAEL. YUE DO Unavailable [phone] LETTIERE, A PACO PA Unavailable Unavailable LETTIERE, A PACO PA Unavailable Unavailable LETTIERE, A PACO PA Unavailable Unavailable LETTIERE, A PACO PA Unavailable Unavailable LETTIERE, A PACO PA Unavailable Unavailable LETTIERE, A PACO PA Unavailable Unavailable LETTIERE, A PACO PA Unavailable Unavailable LETTIERE, A PACO PA Unavailable Unavailable LETTIERE, A PACO PA Unavailable Unavailable LETTIERE, A PACO PA Unavailable Unavailable LETTIERE, A PACO PA Unavailable Unavailable LETTIERE, A PACO PA Unavailable Unavailable LETTIERE, A PACO PA Unavailable Unavailable LETTIERE, A PACO PA Unavailable Unavailable LETTIERE, A PACO PA Unavailable Unavailable LETTIERE, A PACO PA Unavailable Unavailable LETTIERE, A PACO PA Unavailable Unavailable LETTIERE, A PACO PA Unavailable Unavailable LETTIERE, A PACO PA Unavailable Unavailable LETTIERE, A PACO PA Unavailable Unavailable LETTIERE, A PACO PA Unavailable Unavailable LETTIERE, A PACO PA Unavailable Unavailable LETTIERE, A PACO PA Unavailable Unavailable LETTIERE, A PACO PA Unavailable Unavailable LETTIERE, A PACO PA Unavailable Unavailable LETTIERE, A PACO PA Unavailable Unavailable LETTIERE, A PACO PA Unavailable Unavailable LETTIERE, A PACO PA Unavailable Unavailable LETTIERE, A PACO PA Unavailable Unavailable Re-disclosure Warning The records that you are about to access may contain information from federally-assisted alcohol or drug abuse programs. If such information is present, then the following federally mandated warning applies: This information has been disclosed to you from records protected by federal confidentiality rules (42 CFR part 2). The federal rules prohibit you from making any further disclosure of this information unless further disclosure is expressly permitted by the written consent of the person to whom it pertains or as otherwise permitted by 42 CFR part 2. A general authorization for the release of medical or other information is NOT sufficient for this purpose. The Federal rules restrict any use of the information to criminally investigate or prosecute any alcohol or drug abuse patient.The records that you are about to access may contain highly sensitive health information, the redisclosure of which is protected by Article 27-F of the [facility] Public Health law. If you continue you may have access to information: Regarding HIV / AIDS; Provided by facilities licensed or operated by the [facility] Office of Mental Health; or Provided by the [facility] Office for People With Developmental Disabilities. If such information is present, then the following [facility] mandated warning applies: This information has been disclosed to you from confidential records which are protected by state law. State law prohibits you from making any further disclosure of this information without the specific written consent of the person to whom it pertains, or as otherwise permitted by law. Any unauthorized further disclosure in violation of state law may result in a fine or fpc sentence or both. A general authorization for the release of medical or other information is NOT sufficient authorization for further disc losure. Allergies and Adverse Reactions Type Description Substance Reaction Status Data Source(s ) Allergy to substance No Known Allergies No known allergies (situation ) HERB (Santi Morgan MD [facility]) Allergy to substance No Known Allergies No known allergies (situation ) HERB (Santi Morgan MD [facility]) Drug Allergy NKDA NKDA [facility]) Family History Family Member Name Family Member Gender Family Member Status Date o f Status Description Data Source(s) Unknown Female Problem [facility] ([facility] ) Unknown Female Problem [facility]) Encounters Encounter Providers Location Date Indications Data Source(s ) Outpatient<td ID="encounterTypeDescripti onID1">1 WK PREOP FOR SURGERY</td><td>Yue Michael DO</td><td>Santi Germain MD [facility]</td><td>05/29/2020</td><td>1:27PM</td><td>2:28PM</td><td><content ID="encounterDiagnosisID1-0">Cataract Senile Posterior Subcapsular Polar</content></td> Attender: YUE Hogan MD [facility] 05/29/2020 01:27:00 PM EST - 05/29/2020 02:28:00 PM EST Cataract Senile Posterior Subcapsular Polar HERB (Santi Morgan MD [facility]) Cataract Senile Posterior Subcapsular Po lar Outpatient<td ID="encounterTypeDescripti onID0">Extracapsular cataract removal w/IOL implant</td><td>Yue Michael DO</td><td>[facility]</td><td>06/14/2020</td><td>05/29/2020 8:30AM</td><td>7:04AM</td><td></td> Attender: YUE MICHAEL DO [facility] 05/11 08:30:00 AM EST - 06/14/2020 07:04:00 AM EST HERB (Santi Morgan MD [facility]) Outpatient Attender: Mayra Rodriguez 05/16 12:40:00 PM EST MEDENT ([facility] ) Outpatient Attender: PACO gonzalez 05/02/2020 03:15:00 PM EST MEDENT ([facility], [facility]) Outpatient<td ID="encounterTypeDescripti onID2">NEW PATIENT WITH REFERRAL</td><td>Yue Michael DO</td><td>Santi Germain MD [facility]</td><td>04/11/2020</td><td>12:45PM</td><td>2:20PM</td><td><content ID="encounterDiagnosisID2-0">Dry Eye Syndrome</content>, <content ID="encounterDiagnosisID2-1">Cataract Senile Posterior Subcapsular Polar</content>, <content ID="encounterDiagnosisID2-2">Vitreous Disorders Degeneration</content></td> Attender: YUE Hogan MD [facility] 04/11/2020 12:45:00 PM EST - 04/11/2020 02:20:00 PM ES T Vitreous Disorders DegenerationCataract Senile Posterior Subcapsular PolarDry Eye SyndromeVitreous Disorders DegenerationCataract Senile Posterior Subcapsular PolarDry Eye Syndrome HERB (Santi Morgan MD [facility]) Vitreous Disorders Degeneration Cataract Senile Posterior Subcapsular Po lar Dry Eye Syndrome Vitreous Disorders Degeneration Cataract Senile Posterior Subcapsular Po lar Dry Eye Syndrome Outpatient Attender: Mayra Rodriguez 02/02 08:00:00 AM EDT MEDENT ([facility] ) Outpatient Attender: PACO gonzalez 12/29/2019 09:00:00 AM EDT MED[facility] ([facility], [facility]) Outpatient Attender: Breanna robledo 10/14/2019 10:45:00 AM EDT [facility] ([facility]) Emergency Attender: WILL LEE 11/26/19 16 11:22:00 AM EDT - 11/26/2015 11:34:00 AM [facility] Emergency Attender: MATT LEE EMERGENCY ROOM-ER 0 11/07/2013 03:01:00 AM EDT - 11/07/2013 04:10:00 AM [facility] Medications Medication Brand Name Start Date Product Form Dose Route Admi nistrative Instructions Pharmacy Instructions Status Indications Reaction Description Data Source(s) Inveltys 1% Ophthalmic Suspension Inveltys 1% Ophthalmic Roxane pension 05/29/2020 12:00:00 AM EST active loteprednol etabonate 10 MG/ML Ophthalmic Suspension [Inveltys] HERB (Santi Morgan MD [facility]) BromSite 0.075% Ophthalmic Solution BromSite 0.075% Ophthalm ic Solution 05/29/2020 12:00:00 AM EST active bromfenac 0.75 MG/ML Ophthalmic Solution [Bromsite] HERB (Santi Morgan MD [facility]) moxifloxacin 5 MG/ML Ophthalmic Solution Moxifloxacin HCl 0.5% Ophthalmic Solution Moxifloxacin HCl 0.5% Ophthalmic Solution 05/29/2020 12:00:00 AM EST active moxifloxacin 5 MG/ML Oph thalmic Solution HERB (Santi Morgan MD [facility]) NITROFURANTOIN, MACROCRYSTALS 100 MG Oral Capsule Nitrofuran toin Macrocrystal 05/02/2020 12:00:00 AM EST ORAL active MED[facility] ([facility]) Multi Vitamin Oral Tablet Multi Vitamin Oral Tablet 04/11/2020 1 2:00:00 AM EST 1 aborted Multi Vitamin GR EENWAY (Santi Morgan MD [facility]) Estradiol 0.5 MG Oral Tablet Estradiol 0.5 MG Oral Tablet 12:00:00 AM EST 1 active estradiol 0.5 MG Oral Tablet HERB (Santi Morgan MD [facility]) POLYETHYLENE GLYCOL 3350 142 MG/ML Oral Solution [Miralax] MiraLax 17 GM/SCOOP Oral Powder MiraLax 17 GM/SCOOP Oral Powder 04/11/2020 12:00:00 AM EST 1 active polyethylene gly col 3350 65038 MG Powder for Oral Solution [Miralax] HERB (Santi Morgan MD [facility]) Metformin hydrochloride 500 MG Oral Tablet metFORMIN H Cl 500 MG Oral Tablet metFORMIN HCl 500 MG Oral Tablet 04/11/2020 12:00:00 AM EST 1 aborted metformin hydrochloride 500 MG Oral Tablet HERB (Marquis Morgan MD [facility]) Omeprazole 40 MG Delayed Release Oral Ca psule Omeprazole 40 MG Oral Capsule Delayed Release Omeprazole 40 MG Oral Capsule Delayed Release 04/11/20 12:00:00 AM EST 1 aborted omeprazole 40 MG Delayed Release Oral Capsule HERB (Santi Morgan MD [facility]) Calcium 600 MG Oral Tablet Calcium 600 MG Oral Tablet 2019 12:00:00 AM EST 1 active Calcium HERB (Santi Morgan MD [facility]) Vitamin D 07986 UNITS Oral Capsule Vitamin D 19861 UNITS Ora l Capsule 04/11/2020 12:00:00 AM EST active Vitamin D HERB (Santi Morgan MD [facility]) Loratadine 10 MG Oral Tablet [Claritin] Claritin 10 MG Oral Tablet Claritin 10 MG Oral Tablet 04/11/2020 12:00:00 AM EST 1 act britton loratadine 10 MG Oral Tablet [Claritin] HERB (Santi Morgan MD [facility]) Losartan Potassium 100 MG Oral Tablet Losartan Potassium 100 MG Oral Tablet 04/11/2020 12:00:00 AM EST 1 aborted losartan potassium 100 MG Oral Tablet HERB (Santi Morgan MD [facility]) Multi Vitamin Oral Tablet Multi Vitamin Oral Tablet 04/11/2020 1 2:00:00 AM EST 1 active Multi Vitamin GR EENWAY (Santi Morgan MD [facility]) valacyclovir 1000 MG Oral Tablet valACYclovir HCl 1 GM Oral Tablet valACYclovir HCl 1 GM Oral Tablet 04/11/2020 12:00:00 AM EST 1 aborted valacyclovir 1000 MG Oral Tablet HERB (Santi Morgan MD [facility]) buspirone hydrochloride 5 MG Oral Tablet busPIRone HCl 5 MG Oral Tablet busPIRone HCl 5 MG Oral Tablet 04/11/2020 12:00:00 AM EST 1 active buspirone hydrochloride 5 MG Oral Tablet HERB (Santi Morgan MD [facility]) Azelastine HCl 0.1% Nasal Solution Azelastine HCl 0.1% Nasal Solution 04/11/2020 12:00:00 AM EST 1 active azelastine hydrochloride 0.137 MG/ACTUAT Metered Dose Nasal [place] HERB (Santi Morgan MD [facility]) Glucosamine 1500 Complex Oral Capsule Glucosamine 1500 Compl ex Oral Capsule 04/11/2020 12:00:00 AM EST 1 aborted Glucosamine 1500 Complex HERB (Santi Morgan MD [facility]) Atorvastatin 20 mg Oral Tablet Atorvastatin 20 mg Oral Table t 04/11/2020 12:00:00 AM EST 1 active Atorvast atin 20 mg HERB (Santi Morgan MD [facility]) atorvastatin 10 MG Oral Tablet [Lipitor] Lipitor 10 MG Oral Tablet Lipitor 10 MG Oral Tablet 04/11/2020 12:00:00 AM EST 1 abort ed atorvastatin 10 MG Oral Tablet [Lipitor] HERB (Santi Morgna MD [facility]) atorvastatin 20 MG Oral Tablet Atorvastatin Calcium 12/29/2019 1 2:00:00 AM EDT active MEDENT ( [facility], [facility]) Insurance Providers Payer name Policy type / Coverage type Policy ID Covered libertarian ID Covered libertarian's relationship to kang Policy Kang Plan Information [facility] [id number] [facility] [id number] [facility] [id number] HU2 [id number] MEDICARE [id number] SP [id number] [facility] Employees ([employer] - [employer] Other 0 Self 0 Medicare Part B of [facility] Other 0 Se lf 0 [facility] Employees ([employer] - [employer] Other 0 Self 0 Medicare Part B of [facility] Other 0 Se lf 0 BCBS EMPIRE [id number] SPO [id number] UNITED HE[employer]CARE [id number] SPO [id number] [place] [employer] EMPIRE [id number] SPOUSE [id number] United [employer] [place] Commercial [id number] Family Depende nt [id number] United [employer] [place] Commercial [id number] Family Depende nt [id number] UNITED HEALTHCARE [id number] [id number] BCBS EMPIRE MICHAELA DIV [id number] UNITED HEALTHCARE [id number] [id number] [facility] O [id number] S [id number] [employer] [place] Commercial [id number] Family Depende nt [id number] [employer] [place] Commercial Family Depende nt [place] [facility] Health Maintenance Organization (HMO) Family Dependent UNITED HEALTHCARE [id number] HU2 [id number] Problems, Conditions, and Diagnoses Code Display Name Description Problem Type Effective Dates Data Source(s) 75202263 Vitamin D deficiency Vitamin D deficiency Problem 04/19/2020 12:00:00 AM EST MED[facility] ([facility]) 492159001 Elevated blood-pressure reading without diagnosis of hypertension Elevated blood-pressure reading without diagnosis of hypertension Problem 04/19/2020 12:00:00 AM EST [facility] ([facility]) 379.21 Vitreous Disorders Degeneration Vitreous Disorders Deg eneration Problem 04/11/2020 12:00:00 AM EST HERB (Santi Morgan MD [facility]) 375.15 Dry Eye Syndrome Dry Eye Syndrome Problem 04/11/2020 12 :00:00 AM EST HERB (Santi Morgan MD [facility]) 366.14 Cataract Senile Posterior Subcapsular Po lar Cataract Senile Posterior Subcapsular Polar Problem 04/11/2020 12:00:00 AM EST HERB (Darrel Morgan MD [facility]) 379.21 Vitreous Disorders Degeneration Vitreous Disorders Deg eneration Problem 04/11/2020 12:00:00 AM EST HERB (Santi Morgan MD [facility]) 375.15 Dry Eye Syndrome Dry Eye Syndrome Problem 04/11/2020 12 :00:00 AM EST HERB (Santi Morgan MD [facility]) 366.14 Cataract Senile Posterior Subcapsular Po lar Cataract Senile Posterior Subcapsular Polar Problem 04/11/2020 12:00:00 AM EST HERB (Darrel Morgan MD [facility]) Surgeries/Procedures Procedure Description Date Indications Data Source(s) OPH BMTRY PRTL COHER INTRFRMTRY IO LENS PWR DEBBIE Ophtha lmic biometry - IOL Master with IOL calculation (Right Side, WAIVER OF LIABILITY ON FILE (ABN)) 05/29/2020 12:00:00 AM EST HERB (Santi Morgan MD [facility]) Intermediate Eye Exam Established Patient (Signi/Sep E radha. & Man.) Intermediate Eye Exam Established Patient (Signi/Sep Eval. & Man.) 05/29/2020 12:00:00 AM EST HERB (Santi Morgan MD [facility]) Mammogram 04/18/2020 12:00:00 AM EST M EDENT ([facility]) Diabetic Retinal Eye Exam 04/12/2020 12:00:00 AM EST [facility] ([facility]) Surgical / procedural history Hysterectomy 2000 Surgi debbie / procedural history Hysterectomy 2000 04/11/2020 12:00:00 AM EST HERB (Darrel Morgan MD [facility]) Medical Eye Exam Medical Eye Exam 04/11/2020 12:00:00 AM EST HERB (Santi Morgan MD [facility]) Medical Eye Exam Medical Eye Exam 04/11/2020 12:00:00 AM EST HERB (Santi Morgan MD [facility]) Diabetic Retinal Eye Exam 03/01/2020 12:00:00 AM EDT [facility] ([facility]) Results ID Date Data Source [id number] 06/16/2020 09:15:00 AM EST [facility] Name Value Range Interpretation Code Description Data Fatmata rce(s) Supporting Document(s) SARS coronavirus 2 RNA Not Detected [facility] This lab was ordered by [facility] and reported by [facility]. ID Date Data Source [id number] 06/09/2020 08:30:00 AM EST [facility] Name Value Range Interpretation Code Description Data Fatmata rce(s) Supporting Document(s) SARS coronavirus 2 [facility] by [facility] and reported by [facility]. ID Date Data Source [id number] 05/02/2020 03:37:00 PM EST [facility] ([facility]) Name Value Range Interpretation Code Description Data Fatmata rce(s) Supporting Document(s) Bacteria identified in Urine by Culture [facility], [facility]) Rx Nitrofurantion ID Date Data Source [id number] 05/02/2020 12:00:00 AM EST [facility] Name Value Range Interpretation Code Description Data Fatmata rce(s) Supporting Document(s) SARS-CoV2 Rapid Antigen [facility] This lab was reported by [facility]. ID Date Data Source [id number] 02/03/2020 09:17:00 AM EDT [facility] ([facility]) Name Value Range Interpretation Code Description Data Fatmata rce(s) Supporting Document(s) Urea nitrogen [Mass/volume] in Serum or Plasma 16 mg/dL 7-18 [facility] ([facility]) Glucose [Mass/volume] in Serum or Plasma 89 mg/dL 74-99 [facility] ([facility]) 100-125 mg/dL PRE-DIABETES/FASTING >126 mg/dL DIABETES/FASTING Chloride [Moles/volume] in Serum or Plasma 102 meq/L 98-107 [facility] ([facility]) Sodium [Moles/volume] in Serum or Plasma 139 meq/L 136-145 [facility] ([facility]) Creatinine 1.0 mg/dL 0.6-1.3 [facility] Potassium [Moles/volume] in Serum or Plasma 3.9 meq/L 3.5-5.1 [facility] ([facility]) Alkaline phosphatase isoenzyme [Units/volume] in Serum or Pl asma 64 mg/dL 46-116 [facility] ([facility]) Calcium [Mass/volume] in Serum or Plasma 9.2 mg/dL 8.5-10.1 [facility] ([facility]) Carbon dioxide, total [Moles/volume] in Serum or Plasma 29 meq/L 21 -32 [facility] Aspartate aminotransferase [Enzymatic activity/volume] in Serum or Plasma 21 U/L 15-37 [facility] ([facility] ) Alanine aminotransferase [Enzymatic activity/volume] in Seru m or Plasma 33 U/L 12-78 [facility] ([facility]) Total Bilirubin 0.4 mg/dL 0.2-1.0 [facility] ([facility]) A/G Ratio 1.03 CALC 1.00-1.90 [facility] Proteinase 3 Ab [Units/volume] in Serum 7.1 g/dL 6.4-8.2 [facility] ([facility]) Albumin [Mass/volume] in Serum or Plasma 3.6 g/dL 3.4-5.0 [facility] ([facility]) Glomerular filtration rate/1.73 sq M pre dicted among non-blacks [Volume Rate/Area] in Serum or Plasma by Creatinine-based formula (MDRD) 56 mL/min [facility] ([facility]) Glomerular filtration rate/1.73 sq M pre dicted among blacks [Volume Rate/Area] in Serum or Plasma by Creatinine-based formula (MDRD) Laboratory test result [facility] ([facility]) <content>CHRONIC KIDNEY DISEASE STAGING PER NKF</content>
<content></content>
<content>STAGE I & II GFR >= 60 NORMAL TO MILDLY DECREASED</content>
<content>STAGE III GFR 30-59 MODERATELY DECREASED</content>
<content>STAGE IV GFR 15-29 SEVERELY DECREASED</content>
<content>STAGE V GFR <15 VERY LITTLE GFR LEFT</content>
<content>ESRD GFR <15 ON LABOR/EXCAVATOR</content>
<content></content> ID Date Data Source [id number] 02/03/2020 09:17:00 AM EDT [facility] ([facility]) Name Value Range Interpretation Code Description Data Fatmata rce(s) Supporting Document(s) Leukocytes [#/volume] in Blood by Automated count 6.9 x10*3/UL 4.1-10 .9 [facility] ([facility]) Hemoglobin [Mass/volume] in Blood 13.0 g/dL 12.0-18.0 [facility] ([facility]) Erythrocytes [#/volume] in Blood by Automated count 4.14 x10*6/UL 4.2 0-6.30 [facility] ([facility]) Hematocrit [Volume Fraction] of Blood by Automated count 37.3 % 3 7.0-51.0 [facility] ([facility]) MCH 31.3 pg 26.0-32.0 [facility]) MCHC 34.8 g/dL 31.0-38.0 [facility] ([facility]) MCV 89.9 fL 80.0-97.0 [facility] ([facility]) Erythrocyte distribution width [Ratio] by Automated count 12.6 % 11.6-13.7 [facility] ([facility]) Lymph % 36.3 % 10.0-58.5 [facility] ([facility]) Platelets [#/volume] in Blood by Automated count 248 x10*3/UL 140-440 [facility] ([facility]) MPV 9.4 FL 7.8-11.0 [facility] ([facility]) Neut % 55.9 % 37.0-92.0 [facility] ([facility]) Mid % 7.8 % 1.7-9.3 [facility] ([facility]) Lymph # 2.5 x10*3/UL 0.6-4.1 [facility] ([facility]) Neut # 3.8 x10*3/UL 2.0-7.8 [facility] ([facility]) Mid # 0.6 x10*3/UL 0.1-0.6 [facility] ([facility]) ID Date Data Source [id number] 02/03/2020 09:17:00 AM EDT [facility] ([facility]) Name Value Range Interpretation Code Description Data Fatmata rce(s) Supporting Document(s) Calcidiol [Mass/volume] in Serum or Plasma 89.9 24.0-80.0 [facility] ([facility]) This test was performed using [employer] I P Vitamin D immunoassay kit. Values obtained with different assay methods should not be used interchangeably. ID Date Data Source [id number] 02/03/2020 09:17:00 AM EDT [facility] ([facility]) Name Value Range Interpretation Code Description Data Fatmata rce(s) Supporting Document(s) Cholesterol [Mass/volume] in Serum or Plasma 204 mg/dL 131-200 [facility] ([facility]) Triglyceride [Mass/volume] in Serum or Plasma 212 mg/dL 30-150 [facility] ([facility]) Cholesterol in HDL [Mass/volume] in Serum or Plasma 93 mg/dL 35-60 [facility] ([facility]) Cholesterol in LDL [Mass/volume] in Serum or Plasma by calcu lation 69 CALC 50-159 [facility] ([facility]) Procedure Social History Code Duration Value Status Description Data Source(s ) Smoking 05/31/2020 03:22:07 PM EST Ex-smoker (finding) complet ed Ex-smoker (finding) [facility] (Santi Morgan [facility]) Smoking 05/02/2020 12:00:00 AM EST Patient is a former smoker completed Patient is a former smoker [facility] ([facility], [facility]) Smoking 04/11/2020 02:15:41 PM EST Ex-smoker (finding) complet ed Ex-smoker (finding) [facility] (Santi Morgan MD [facility]) Vital Signs ID Date Data Source UNK Name Value Range Interpretation Code Description Data Source(s) Body mass index (BMI) [Ratio] 25.4 kg/m2 25.4 k g/m2 [facility] ([facility]) Oxygen saturation in Arterial blood by Pulse oximetry 96 % 96 % [facility] ([facility]) Body weight 148.00 [lb_av] 148.00 [lb_av] [facility] ([facility]) Body height 64 [in_i] 64 [in_i] [facility] ([facility]) 5'4" Heart rate 64 /min 64 /min [facility] ([facility]) Diastolic blood pressure 84 mm[Hg] 84 mm[Hg] [facility] ([facility]) Systolic blood pressure 144 mm[Hg] 144 mm[Hg] M [facility] ([facility]) Body weight 147.00 [lb_av] 147.00 [lb_av] [facility] [place], [facility]) Body temperature 97.5 [degF] 97.5 [degF] [facility] ([facility], [facility]) Oxygen saturation in Arterial blood by Pulse oximetry 97 % 97 % [facility] ([facility], [facility]) Respiratory rate 16 /min 16 /min [facility] ( [facility] [place], [facility]) Heart rate 93 /min 93 /min [facility] ([facility] [place], [facility]) Diastolic blood pressure 95 mm[Hg] 95 mm[Hg] [facility] ([facility], [facility]) Systolic blood pressure 145 mm[Hg] 145 mm[Hg] [facility] ([facility], [facility]) Body mass index (BMI) [Ratio] 25.6 kg/m2 25.6 k g/m2 [facility] ([facility]) Oxygen saturation in Arterial blood by Pulse oximetry 97 % 97 % [facility] ([facility]) Body weight 149.00 [lb_av] 149.00 [lb_av] [facility] ([facility]) Body height 64 [in_i] 64 [in_i] [facility] ([facility]) 5'4" Heart rate 73 /min 73 /min [facility] ([facility]) Diastolic blood pressure 94 mm[Hg] 94 mm[Hg] [facility] ([facility]) Systolic blood pressure 132 mm[Hg] 132 mm[Hg] [facility] ([facility]) Diastolic blood pressure 92 mm[Hg] 92 mm[Hg] [facility] ([facility]) Systolic blood pressure 144 mm[Hg] 144 mm[Hg] M [facility] ([facility]) Body mass index (BMI) [Ratio] 24.4 kg/m2 24.4 k g/m2 [facility] ([facility], [facility]) Body height 64 [in_i] 64 [in_i] [facility] ([facility]) 5'4" Body weight 142.00 [lb_av] 142.00 [lb_av] [facility] ([facility], [facility]) Body temperature 98.2 [degF] 98.2 [degF] [facility] ([facility], [facility]) Oxygen saturation in Arterial blood by Pulse oximetry 98 % 98 % [facility] ([facility], [facility]) Respiratory rate 12 /min 12 /min [facility] ( [facility], [facility]) Heart rate 72 /min 72 /min [facility] ([facility], [facility]) Diastolic blood pressure 84 mm[Hg] 84 mm[Hg] [facility] ([facility]) Systolic blood pressure 152 mm[Hg] 152 mm[Hg] [facility] ([facility]) Body mass index (BMI) [Ratio] 24.4 kg/m2 24.4 k g/m2 [facility] ([facility]) Body height 64 [in_i] 64 [in_i] [facility] ([facility]) 5'4" Body weight 142.00 [lb_av] 142.00 [lb_av] [facility] ([facility], [facility]) Body temperature 98.6 [degF] 98.6 [degF] [facility] ([facility], [facility]) Oxygen saturation in Arterial blood by Pulse oximetry 98 % 98 % [facility] ([facility]) Heart rate 116 /min 116 /min [facility] ([facility], [facility]) Diastolic blood pressure 80 mm[Hg] 80 mm[Hg] [facility] ([facility]) Systolic blood pressure 116 mm[Hg] 116 mm[Hg] [facility] ([facility]) Patient Treatment Plan of Care Planned Activity Planned Date Details Description Data Source (s) moxifloxacin 5 MG/ML Ophthalmic Solution 05/29/2020 12:00:00 AM EST [facility] (Santi Morgan MD [facility]) BromSite 0.075% Ophthalmic Solution 05/29/2020 12:00:00 AM EST [facility] (Santi Morgan MD [facility]) Inveltys 1% Ophthalmic Suspension 05/29/2020 12:00:00 AM [facility] (Santi Morgan MD [facility])
[2020-06-21] MEDS ORDERED: POVIDONE-IODINE 5% OPHTH PREP SOL 30ML As Ordered ONE (06:46)
[2020-06-21] MEDS ORDERED: DUOVISC (0.50ML VISCOAT/0.55ML PROVISC) OPHTH KIT As Ordered ONE (06:47)
[2020-06-21] MEDS ORDERED: TROPICAMIDE 1% OPHTH SOLN 2ML OS ONE (07:00)
[2020-06-21] MEDS ORDERED: PHENYLEPHRINE 2.5% OPHTH SOL 2ML OS ONE (07:00)
[2020-06-21] MEDS ORDERED: OFLOXACIN 0.3 % (OCUFLOX) OPTH SOL 5ML OS ONE (07:00)
[2020-06-21] MEDS ORDERED: PROPARACAINE 0.5% OPHTH SOL 15ML OS ONE (07:00)
[2020-06-21] MEDS ORDERED: MIDAZOLAM INJ 2MG/2ML VIAL (J2250 PER 1MG) As Ordered ONE (07:13)
[2020-06-21] MEDS ORDERED: fentaNYL 100 MCG/2 ML INJECTION (J3010) As Ordered ONE (07:13)
[2020-06-21] MEDS ORDERED: CEFUROXIME 1MG/0.1ML INTRACAMERAL INJ As Ordered ONE (07:18)
[2020-06-21] MEDS ORDERED: BSS IRR 500ML/OMIDRIA 4ML IRR BAG (OR ONLY) As Ordered ONE (07:47)
[2020-06-21 08:40] VITALS: BP 122/84
--- NOTE | 2020-06-22 09:39 | RO ---
OPERATIVE NOTE DATE OF OPERATION: 06/21/2020 PREOPERATIVE DIAGNOSIS: 1. Visually significant nuclear sclerotic cataract, left eye. POSTOPERATIVE DIAGNOSIS: 1. Visually significant nuclear sclerotic cataract, left eye. PROCEDURE: 1. Cataract extraction with use of phacoemulsification, intraoperative aberrometry, and placement of intraocular lens, [id number], 21.0 D, left eye. SURGEON: Micheal Michael DO ANESTHESIA: Local (Omidria with MAC) COMPLICATIONS: None POSTOPERATIVE CONDITION: Stable INDICATIONS FOR SURGERY: 1. Blurred vision affecting patient's activities of daily living. DESCRIPTION OF PROCEDURE: The patient was seen in the preoperative area and properly identified. The correct operative eye was identified and marked. The patient received topical anesthetic, antibiotics, and topical dilating drops. The patient was then transferred to the operating room. The correct side was re-identified and a time-out was performed. The eye was prepped and draped in a sterile fashion. The eyelids were isolated with Tegaderm tape and the lids were held open with an adjustable speculum. A 1.0mm paracentesis incision was made. Omidria was then injected into the anterior chamber. Viscoelastic was then injected into the anterior chamber through the paracentesis. Using a 2.4mm sharp-tipped keratome, the anterior chamber was entered via a temporal clear cornea incision. A continuous curvilinear capsulorrhexis was created with Utrata forceps. Hydrodissection was performed with BSS on a blunt cannula until the nucleus was able to rotate freely. The crystalline lens was phacoemulsified and aspirated. Irrigation/aspiration was used to remove the cortical material Cohesive viscoelastic was placed into the capsular bag to deepen it. The implant was placed into the capsular bag and allowed to unfold. Placement was confirmed by visualizing the anterior capsulorrhexis. Irrigation/aspiration was used to remove the viscoelastic. The clear corneal incision was hydrated with BSS on a blunt cannula. The lens was well positioned. Intracameral antibiotic was injected into the anterior chamber. The incisions were then tested for leaks and found to be negative. The eye was then palpated for appropriate pressure and adjusted accordingly with BSS. The eyelid speculum was then carefully removed. A shield was placed over the eye. The patient tolerated the procedure well and was discharge to the recovery unit in a stable condition.
== END 2020-06-21 08:45 | disposition home or self-care (01) ==
LOC: M SDC 06:32
PROVIDERS: ATTEND Ophthalmology
DX: H25.12 Age-related nuclear cataract, left eye (principal); I10 Essential (primary) hypertension; E78.5 Hyperlipidemia, unspecified; K21.9 Gastro-esophageal reflux disease without esophagitis; Z87.891 Personal history of nicotine dependence; Z79.899 Other long term (current) drug therapy
CPT/HCPCS: 66984; J1097; J2250; J3010

== ENCOUNTER → 2020-08-15 | Outpatient (REF) | payer MEDICARE, OTHER | LOC: M LAB REF 16:29 | PROVIDERS: ATTEND Nurse Practitioner Adult Health | DX: L81.8 Other specified disorders of pigmentation (principal) ==

== ENCOUNTER → 2021-01-15 | Outpatient (REF) | payer MEDICARE, OTHER | LOC: M WUC 11:17 | PROVIDERS: ATTEND Physician Assistant Medical | DX: N39.0 Urinary tract infection, site not specified (principal) ==

== ENCOUNTER → 2021-04-03 | Outpatient (REF) | payer MEDICARE, OTHER ==
[2021-04-05 16:09] LABS: TESTOSTERONE FREE (DIRECT) 2.4 pg/mL (0.0-4.2)
== END ==
LOC: M LAB REF 10:44
PROVIDERS: ATTEND Nurse Practitioner Family
DX: R53.83 Other fatigue (principal)

== ENCOUNTER → 2023-11-17 | Outpatient (REF) | payer MEDICARE, OTHER ==
[2023-11-19 07:57] LABS: LDL DIRECT 102 mg/dL (<100)
== END ==
LOC: M LAB REF 11:51
PROVIDERS: ATTEND Nurse Practitioner Family
DX: E78.2 Mixed hyperlipidemia (principal)

== ENCOUNTER → 2024-08-29 | Outpatient (CLI) | payer MEDICARE, OTHER ==
[2024-08-29 13:54] LABS: BASO % 0.4 % (0.0-1.0); EOS # 0.2 10^3/uL (0.0-0.5); EOS % 3.3 % (0.0-3.0); HEMATOCRIT 42.7 % (36.0-47.0); LYMPH # 2.9 10^3/uL (1.5-5.0); LYMPH % 41.7 % (24.0-44.0); MEAN CORPUSCULAR HEMOGLOBIN 31.3 pg (27.0-33.0); MEAN CORPUSCULAR HGB CONC 32.8 g/dl (32.0-36.5); MEAN CORPUSCULAR VOLUME 95.3 fl (80.0-96.0); MONO # 0.6 10^3/uL (0.0-0.8); MONO % 9.1 % (2.0-8.0); NEUTROPHILS # 3.1 10^3/uL (1.5-8.5); NEUTROPHILS % 45.2 % (36.0-66.0); PLATELET COUNT, AUTOMATED 263 10^3/uL (150-450); RED BLOOD COUNT 4.48 10^6/uL (4.00-5.40)
[2024-08-29 14:23] LABS: ALKALINE PHOSPHATASE 71 U/L (35-104); ALT/SGPT 40 U/L (7.0-40); AST/SGOT 23 U/L (<34); BILIRUBIN,TOTAL 0.5 MG/DL (0.3-1.2); BLOOD UREA NITROGEN 16 MG/DL (9-23); CALCIUM LEVEL 9.6 MG/DL (8.3-10.6); CARBON DIOXIDE LEVEL 28 MMOL/L (20-31); CHLORIDE LEVEL 107 MMOL/L (98-107); GLOMERULAR FILTRATION RATE 79.7 (>45); GLUCOSE, FASTING 80 MG/DL (74-106); POTASSIUM SERUM 4.3 MMOL/L (3.5-5.1); SODIUM LEVEL 142 MMOL/L (136-145); THYROID STIMULATING HORMONE 1.771 uIU/ML (0.55-4.78); TOTAL PROTEIN 7.3 G/DL (5.7-8.2)
[2024-08-29 14:25] LABS: RHEUMATOID FACTOR QUANT < 3.5 IU/ML (<14)
[2024-08-29 14:26] LABS: FREE THYROXINE INDEX 2.2 % (1.3-4.8)
[2024-08-30 15:32] LABS: ANA SCREEN, IFA NEGATIVE (NEGATIVE)
== END ==
LOC: M WUC 11:41
PROVIDERS: ATTEND Allergy & Immunology Allergy
DX: L29.9 Pruritus, unspecified (principal)